=== PATIENT | female | born 1930 | race Caucasian/White ===

== ENCOUNTER 2016-09-05 19:06 | Inpatient (IN) | payer MEDICARE, MEDICAID ==
[2016-09-05] MEDS ORDERED: Loperamide HCl 2 MG CAP PO PRN (22:01)
[2016-09-05] MEDS ORDERED: Nystatin Powder 15 GM BOT TOP PRN (22:01)
[2016-09-06] MEDS: HYDROcodone/Acetaminophen 10/325 mg Tablet PO PRN ×2 (01:38→09:26)
[2016-09-06] MEDS: Aspirin 81 mg Enteric Coated Tablet PO SCH (08:49)
[2016-09-06] MEDS: Famotidine 20 MG TAB PO SCH ×2 (08:49→20:09)
[2016-09-06] MEDS: Carvedilol 12.5 MG TAB PO SCH ×2 (08:49→17:14)
[2016-09-06] MEDS: Furosemide 20 MG TAB PO SCH (08:50)
[2016-09-06] MEDS ORDERED: Pregabalin 25 MG CAP PO SCH (09:00)
[2016-09-06] MEDS: guaiFENesin ER 600 MG TAB PO SCH ×2 (11:52→20:09)
[2016-09-06] MEDS: Pregabalin 50 MG CAP PO SCH (20:09)
[2016-09-06] MEDS: Pregabalin 25 MG CAP PO SCH (20:10)
[2016-09-07] MEDS: HYDROcodone/Acetaminophen 10/325 mg Tablet PO PRN ×4 (01:01→20:20)
[2016-09-07] MEDS: Pregabalin 50 MG CAP PO SCH ×2 (08:46→20:14)
[2016-09-07] MEDS: Pregabalin 25 MG CAP PO SCH ×2 (08:47→20:11)
[2016-09-07] MEDS: guaiFENesin ER 600 MG TAB PO SCH ×2 (08:48→20:11)
[2016-09-07] MEDS: Furosemide 20 MG TAB PO SCH (08:49)
[2016-09-07] MEDS: Famotidine 20 MG TAB PO SCH ×2 (08:49→20:15)
[2016-09-07] MEDS: Aspirin 81 mg Enteric Coated Tablet PO SCH (08:49)
[2016-09-07] MEDS: Carvedilol 12.5 MG TAB PO SCH ×2 (08:50→17:17)
[2016-09-07] MEDS: Acetaminophen 325 MG TAB PO PRN (11:00)
[2016-09-08] MEDS: HYDROcodone/Acetaminophen 10/325 mg Tablet PO PRN ×3 (07:14→21:31)
[2016-09-08] MEDS: Pregabalin 50 MG CAP PO SCH ×4 (07:25→21:01)
[2016-09-08] MEDS: Furosemide 20 MG TAB PO SCH (08:08)
[2016-09-08] MEDS: Famotidine 20 MG TAB PO SCH ×2 (08:09→21:04)
[2016-09-08] MEDS: Aspirin 81 mg Enteric Coated Tablet PO SCH (08:09)
[2016-09-08] MEDS: Carvedilol 12.5 MG TAB PO SCH ×2 (08:09→17:51)
[2016-09-08] MEDS: guaiFENesin ER 600 MG TAB PO SCH ×2 (08:09→21:01)
[2016-09-08] MEDS: Pregabalin 25 MG CAP PO SCH ×2 (08:10→21:03)
[2016-09-09] MEDS: HYDROcodone/Acetaminophen 10/325 mg Tablet PO PRN ×3 (03:08→21:57)
[2016-09-09] MEDS: Furosemide 20 MG TAB PO SCH (09:35)
[2016-09-09] MEDS: Carvedilol 12.5 MG TAB PO SCH ×2 (09:35→17:32)
[2016-09-09] MEDS: Pregabalin 50 MG CAP PO SCH ×2 (09:35→20:16)
[2016-09-09] MEDS: guaiFENesin ER 600 MG TAB PO SCH ×2 (09:35→20:15)
[2016-09-09] MEDS: Pregabalin 25 MG CAP PO SCH ×2 (09:35→20:13)
[2016-09-09] MEDS: Famotidine 20 MG TAB PO SCH ×2 (09:35→20:12)
[2016-09-09] MEDS: Aspirin 81 mg Enteric Coated Tablet PO SCH (09:35)
--- NOTE | 2016-09-09 15:42 | HP ---
ATTENDING PHYSICIAN: Jesusita Akhtar M.D. PRIMARY CARE PHYSICIAN: Mikey Maravilla M.D. REASON FOR ADMISSION: Skilled rehabilitation for general weakness/ deconditioning. HISTORY OF PRESENT ILLNESS AND HOSPITAL COURSE: Ms. Estrada is an 85-year-old female with multiple chronic medical conditions. She was admitted initially to [facility] with worsening shortness of breath secondary to discontinuation of Lasix. The patient was found to be with volume overload , thus admitted in telemetry. She was started on IV Lasix for her acute exacerbation and decompensation. She also reports pain in her left hip for which an x-ray of the hip was done that was unremarkable. She had a CT scan of the abdomen and pelvis for vague abdominal pain that was unremarkable for any acute findings. She intermittently reports leg pains. Her lower extremity ultrasound did not show occlusive DVT. Per report, the patient improved markedly with IV Lasix and continuous oxygen supplementation. Prior to discharge, I was told that the patient's O2 sat was discontinued completely as her O2 sats remains greater than 92% at room air. During this hospitalization, her blood pressure medicines were adjusted as tolerated by her blood pressure. Overall, weight significantly reduced from 200 lbs to 199 pounds prior to discharge. She was transferred to [facility] for purposes of skilled rehab as she remains generally weak with an unstable gait. PAST MEDICAL HISTORY: 1. Chronic diastolic heart failure with an ejection fraction of 55% to 60% per an echocardiogram in 04/2016. 2. Chronic obstructive pulmonary disease. 3. Chronic respiratory failure on home O2. 4. Hypertension. 5. Gastroesophageal reflux disease. 6. Obesity. 7. History of atrial fibrillation, status post IVC filter, not on anticoagulation for risk of fall. 8. Anxiety and depression. 9. Neuropathic pain. 10. Chronic lower back pain/left hip pain. 11. History of lung nodule by CT scan followed by Pulmonology. 12. Hypertension. PAST SURGICAL HISTORY: 1. Right nephrectomy. 2. Hip replacement x2. 3. Cholecystectomy. 4. IVC filter placement. 5. Bilateral total hip replacement. 6. Dorsal column stimulator for on and off pain. ALLERGIES: MORPHINE and LASIX. PAST PSYCHIATRIC HISTORY: Significant for anxiety and depression. SOCIAL HISTORY: The patient has no history of any alcohol, drugs or smoking use. She lives by herself. Her daughter is her primary director of outside sales. FAMILY HISTORY: Noncontributory. TRANSFER MEDICATIONS: Aspirin 81 mg p.o. daily, Coreg 12.5 mg p.o. b.i.d., diltiazem 120 mg p.o. daily, famotidine 20 mg p.o. b.i.d., Lasix 20 mg p.o. daily, [place] as needed for pain, DuoNeb as needed for shortness of breath, Imodium as needed for diarrhea, nystatin powder 1 gram topical b.i.d., pregabalin 75 mg p.o. b.i.d., Phenergan as needed for nausea and vomiting and Zoloft 25 mg p.o. daily. SIGNIFICANT LAB RESULTS: On discharge, WBC is 9.9, hemoglobin 13.3, hematocrit 41.8 and platelets 213. Sodium 137, potassium 4, BUN 29 and creatinine 1. Her LFTs were within normal limits. Troponins are negative. Lipase was negative. UA was unremarkable. REVIEW OF SYSTEMS: GENERAL: Denies fever or chills. No loss of appetite. Reports fatigue and general weakness. . HEENT: No acute visual changes or hearing changes. RESPIRATORY: No active shortness of breath, pain with breathing, sputum production or bloody sputum. CARDIAC: No active chest pain or paroxysmal nocturnal dyspnea. Reports intermittent leg edema and dyspnea on exertion. GASTROINTESTINAL: No nausea, vomiting, abdominal pain, diarrhea or rectal bleeding. GENITOURINARY: No dysuria, hematuria, frequency or incontinence. MUSCULOSKELETAL: Reports chronic intermittent joint pains and muscle aches. SKIN: No rashes, no lesions. NEUROLOGIC: No new motor or sensory losses. PSYCHIATRIC: Reports chronic depression, anxiety. Sleeps fine. PHYSICAL EXAMINATION: VITAL SIGNS: Temperature 96.8, pulse 80, respirations 16, O2 sats 98% at 2 liters of oxygen. Weight 198 pounds and 2 ounces. GENERAL: The patient is awake, alert and oriented x3, not in distress. HEENT: Normocephalic and atraumatic. PERRL, intact EOM. Nonicteric sclerae. Oral mucosa is moist. Tongue in the midline. No tremors. NECK: Supple. No LAD, CHEST: Normal excursion, clear to auscultation bilaterally. HEART: Regular rate. Normal S1 and S2. ABDOMEN: Obese, soft, normoactive bowel sounds, nondistended and nontender. No rebound, no guarding. Negative CVA tenderness bilaterally. EXTREMITIES: Trace nonpitting edema bilaterally up to anterior tibia. NEUROLOGIC: Nonfocal unsteady gait. PSYCHIATRIC: Calm, appropriate and cooperative with appropriate demeanor and affect. ASSESSMENT: 1. Deconditioning/general weakness. 2. Acute on chronic diastolic heart failure exacerbation. 3. Acute on chronic respiratory failure secondary to #1 resolved. 4. Atrial fibrillation with rapid ventricular response, currently rate controlled. The patient is not a candidate for anticoagulation, status post IVC filter. 5. Hypertension, stable. 6. Chronic kidney disease stage 3, stable. 7. Chronic obstructive pulmonary disease, requiring home O2 intermittently. 8. Depression/anxiety. 9. Gastroesophageal reflux disease. 10. Obesity. 11. Neuropathic pain. 12. Chronic lower back pain/left hip pain. 13. History of lung nodule by CT scan followed by Pulmonology. PLAN: The patient is admitted to [facility] for skilled rehabilitation. PT to consult to gain modified independence with mobility and household ambulating with a rolling walker at least, weightbearing as tolerated. OT to consult to gain modified independence with self-care ADL skills prior to going back to home environment. Continue all current medications as per list. The patient's pain will be managed with p.r.n. narcotics as well as constipation management. I will monitor the patient for any medical comorbidities that may interfere with rehab progress. ESTIMATED LENGTH OF STAY: 1-2 weeks. DISPOSITION: Home. CODE STATUS: The patient reports do not resuscitate, which is consistent with the patient's records hospital records. STIVEN
[2016-09-09] MEDS ORDERED: Mag-Al Plus 1200 MG/1200 MG/120 MG/30 ML UDCUP PO PRN (18:44)
[2016-09-10] MEDS ORDERED: HYDROcodone/Acetaminophen 10/325 mg Tablet ONE ×2 (04:58→05:02)
[2016-09-10] MEDS: Furosemide 20 MG TAB PO SCH (08:37)
[2016-09-10] MEDS: Carvedilol 12.5 MG TAB PO SCH ×2 (08:37→16:13)
[2016-09-10] MEDS: Aspirin 81 mg Enteric Coated Tablet PO SCH (08:37)
[2016-09-10] MEDS: Famotidine 20 MG TAB PO SCH ×2 (08:38→20:51)
[2016-09-10] MEDS: guaiFENesin ER 600 MG TAB PO SCH ×2 (08:39→20:51)
[2016-09-10] MEDS: Pregabalin 25 MG CAP PO SCH ×2 (08:41→20:53)
[2016-09-10] MEDS: Pregabalin 50 MG CAP PO SCH ×2 (08:41→20:51)
[2016-09-10] MEDS: HYDROcodone/Acetaminophen 10/325 mg Tablet PO PRN ×2 (10:30→20:57)
[2016-09-10] MEDS: Docusate 100 MG CAP PO SCH (20:51)
[2016-09-11] MEDS: Carvedilol 12.5 MG TAB PO SCH ×2 (07:35→17:08)
[2016-09-11] MEDS: HYDROcodone/Acetaminophen 10/325 mg Tablet PO PRN ×3 (07:37→20:08)
[2016-09-11] MEDS: Pregabalin 25 MG CAP PO SCH ×2 (09:04→20:05)
[2016-09-11] MEDS: Aspirin 81 mg Enteric Coated Tablet PO SCH (09:05)
[2016-09-11] MEDS: Docusate 100 MG CAP PO SCH ×2 (09:05→20:07)
[2016-09-11] MEDS: Pregabalin 50 MG CAP PO SCH ×2 (09:05→20:09)
[2016-09-11] MEDS: Furosemide 20 MG TAB PO SCH (09:06)
[2016-09-11] MEDS: Famotidine 20 MG TAB PO SCH ×2 (09:06→20:07)
[2016-09-11] MEDS: guaiFENesin ER 600 MG TAB PO SCH (09:06)
[2016-09-11] MEDS ORDERED: Cyclobenzaprine 10 MG TAB PO PRN (16:36)
[2016-09-12] MEDS: HYDROcodone/Acetaminophen 10/325 mg Tablet PO PRN ×3 (05:37→19:27)
[2016-09-12] MEDS: Pregabalin 25 MG CAP PO SCH ×2 (09:13→20:14)
[2016-09-12] MEDS: Pregabalin 50 MG CAP PO SCH ×2 (09:14→20:15)
[2016-09-12] MEDS: Docusate 100 MG CAP PO SCH ×2 (09:15→20:16)
[2016-09-12] MEDS: Carvedilol 12.5 MG TAB PO SCH ×2 (09:15→17:29)
[2016-09-12] MEDS: Aspirin 81 mg Enteric Coated Tablet PO SCH (09:15)
[2016-09-12] MEDS: Famotidine 20 MG TAB PO SCH ×2 (09:16→20:16)
[2016-09-12] MEDS: Furosemide 20 MG TAB PO SCH (09:16)
[2016-09-13] MEDS: HYDROcodone/Acetaminophen 10/325 mg Tablet PO PRN ×2 (04:29→10:44)
[2016-09-13] MEDS: Acetaminophen 325 MG TAB PO PRN (08:28)
[2016-09-13] MEDS: Pregabalin 25 MG CAP PO SCH ×2 (08:28→20:38)
[2016-09-13] MEDS: Famotidine 20 MG TAB PO SCH ×2 (08:28→20:39)
[2016-09-13] MEDS: Pregabalin 50 MG CAP PO SCH ×2 (08:29→20:39)
[2016-09-13] MEDS: Furosemide 20 MG TAB PO SCH (08:30)
[2016-09-13] MEDS: Aspirin 81 mg Enteric Coated Tablet PO SCH (08:30)
[2016-09-13] MEDS: Docusate 100 MG CAP PO SCH ×2 (08:30→20:39)
[2016-09-13] MEDS: Carvedilol 12.5 MG TAB PO SCH ×2 (08:30→17:23)
[2016-09-13] MEDS ORDERED: HYDROcodone/Acetaminophen 5/325 mg Tablet PO PRN (11:38)
[2016-09-13] MEDS: HYDROcodone/Acetaminophen 5/325 mg Tablet PO PRN ×2 (15:55→23:54)
[2016-09-14 05:31] VITALS: BMI 34.5
[2016-09-14] MEDS: HYDROcodone/Acetaminophen 5/325 mg Tablet PO PRN ×2 (08:05→11:45)
[2016-09-14] MEDS: Pregabalin 25 MG CAP PO SCH (08:06)
[2016-09-14] MEDS: Pregabalin 50 MG CAP PO SCH (08:07)
[2016-09-14] MEDS: Docusate 100 MG CAP PO SCH (08:08)
[2016-09-14] MEDS: Famotidine 20 MG TAB PO SCH (08:08)
[2016-09-14] MEDS: Carvedilol 12.5 MG TAB PO SCH (08:09)
[2016-09-14] MEDS: Aspirin 81 mg Enteric Coated Tablet PO SCH (08:09)
[2016-09-14] MEDS: Furosemide 20 MG TAB PO SCH (08:09)
[2016-09-14 08:32] VITALS: BP 142/77; TEMP 97
--- NOTE | 2016-09-14 21:41 | DIS ---
DATE OF ADMISSION: 09/05/2016 DATE OF DISCHARGE: 09/14/2016 ATTENDING DOCTOR: Jesusita Akhtar MD PRIMARY CARE PHYSICIAN: Mikey Maravilla MD REASON FOR ADMISSION: General weakness,after hospitalization. ASSESSMENT: 1. Deconditioning/general weakness. 2. Vdypy-mg-dosxyup diastolic heart failure exacerbation, improved. 3. Aufvs-iu-cwoaixz respiratory failure secondary to #1, resolved. 4. Atrial fibrillation with rapid ventricular response. Currently, rate controlled. The patient is not a good candidate for anticoagulation secondary to history of fall. Status post IVC filter. 5. Hypertension, stable. 6. Neuropathic pain. 7. Chronic kidney disease stage 3, stable. 8. Chronic obstructive pulmonary disease requiring intermittent O2 use at home. 9. Depression, anxiety, stable. 10. Gastroesophageal reflux. 11. Chronic low back pain/left hip pain, requiring intermittent use of narcotic for pain management. 12. History of lung nodule by CT scan, followed by round boner. 13. Unsteady gait. CONDITION ON DISCHARGE: Stable. DISPOSITION: Home with daughter. HOME MEDICATIONS: 1. Aspirin 81 mg p.o. daily. 2. Coreg 12.5 mg p.o. b.i.d. 3. Diltiazem 120 mg p.o. daily. 4. Famotidine 20 mg p.o. b.i.d. 5. Lasix 20 mg p.o. daily. 6. [place] 10/325 mg every 8 hours p.r.n. 7. DuoNeb every 4 hours p.r.n. 8. Imodium as needed. 9. Nystatin powder topical b.i.d. on affected areas. 10. Pregabalin 75 mg p.o. b.i.d. 11. Zoloft 25 mg p.o. daily. DIET: Low salt, low fat. ACTIVITIES: Ad esdras. Fall precautions. Home O2 p.r.n. to keep O2 saturations 92% and above. FOLLOWUP: Follow up with PCP/Dr. Maravilla on 09/23/2016, as previously scheduled. ER warnings. HISTORY OF PRESENT ILLNESS AND HOSPITAL COURSE: Ms. Estrada is a very pleasant 85-year-old female with multiple chronic medical conditions. She was recently admitted to [facility] for acute exacerbation of CHF, acute renal injury, zcogh-fs-vqavgfz respiratory failure with tachycardia. Patient was treated appropriately in the hospital. Her medications including diuretics and antihypertensives were adjusted appropriately and was well tolerated by her blood pressures. Her oxygen saturation remains in the 92% and above at room air, thus her 02 supplement was discontinued from the hospital. She was generally weak at that time and deemed to benefit from skilled rehabilitation prior to discharging home, thus she was transferred to [facility] on 09/05/2016. Barriers to patient's therapy include low back pain, left hip pain and leg pain, which appears to be chronic. Of note, there were multiple imaging studies obtained from [facility] including venogram, which were all unremarkable ,no acute changes reported. Patient reports that she had a history of chronic low back pain/hip pain from previous injury with previous history of surgeries. She reports history of chronic intermittent pain and is well maintained with p.r.n. narcotics use. Patient did not make marked improvement with her ambulation during he skilled rehab course. During her rehab stay,she has been euvolemic, chest pain-free, no reported dyspnea, no pain with breathing. On 09/13/2016, patient's daughter came to the hospital and requested for discharge. At this time, family is comfortable to take care of the patient at home as they stated that she is at her baseline. The patient was agreeable on this and was discharged 09/14/2016 with plans to continue therapy with home health. Patient has used her 02 intermittently during her rehab. Patient' s O2 sats prior to discharge was 96 at room air. She states that she has home O2 at home and she can use as needed. Vital signs prior to discharge, blood pressure 142/77, temperature 97, pulse 78 , respirations 18, O2 sats 96% at room air. Weight 195 pounds, height 5 feet 3 inches. Time spent on this discharge in assessing patient and coordinating of care 35 minutes. STIVEN
== END 2016-09-14 11:56 | disposition home health service (06) | DRG 947 ==
LOC: MADMS 21:42
PROVIDERS: ADMIT Family Medicine; ATTEND Family Medicine
DX: R53.1 Weakness (principal); I50.33 Acute on chronic diastolic (congestive) heart failure; J96.20 Acute and chronic respiratory failure, unspecified whether with hypoxia or hypercapnia; N18.3 Chronic kidney disease, stage 3 (moderate); J44.9 Chronic obstructive pulmonary disease, unspecified; I48.91 Unspecified atrial fibrillation; Z99.81 Dependence on supplemental oxygen; G62.9 Polyneuropathy, unspecified; F32.9 Major depressive disorder, single episode, unspecified; I13.0 Hypertensive heart and chronic kidney disease with heart failure and stage 1 through stage 4 chronic kidney disease, or unspecified chronic kidney disease; K21.9 Gastro-esophageal reflux disease without esophagitis; Z66 Do not resuscitate; E66.9 Obesity, unspecified; Z88.6 Allergy status to analgesic agent; Z79.82 Long term (current) use of aspirin; F41.9 Anxiety disorder, unspecified; Z68.35 Body mass index [BMI] 35.0-35.9, adult; M54.5 Low back pain; M25.552 Pain in left hip; R26.81 Unsteadiness on feet; Z96.643 Presence of artificial hip joint, bilateral
CPT/HCPCS: J7620

== ENCOUNTER 2016-09-22 11:50 | Emergency (ER) | payer MEDICARE, MEDICAID ==
[2016-09-22] MEDS ORDERED: Ondansetron HCl/PF 4 MG/2 ML Vial ONE (12:27)
[2016-09-22] MEDS ORDERED: Diazepam 5 MG TAB ONE (12:27)
[2016-09-22] MEDS ORDERED: Ketorolac Tromethamine 30 MG/ML VIAL ONE (12:27)
[2016-09-22 12:45] LABS: #Basophils 0.1 thou/uL (0.0-0.2); #Lymphocytes 2.5 thou/uL (1.20-3.40); #Monocytes 0.9 thou/uL (0.11-0.59); #Neutrophils 7.1 thou/uL (1.40-6.50); %Basophils 0.8 % (0.0-1.0); %Eosinophils 0.2 % (0.0-10.0); %Lymphocytes 23.4 % (21.0-51.0); %Monocytes 8.3 % (0.0-10.0); %Neutrophils 67.3 % (42.0-75.0); Hemoglobin 13.4 g/dL (12.0-16.0); Mean Corpuscular HGB CONC 31.5 g/dL (32.0-36.0); Mean Corpuscular Volume 85.7 fl (81.0-99.0); Mean Platelet Volume 8.8 fL (7.4-10.4); Platelet Count 217 thou/uL (130-400); Red Blood Cell (RBC) Count 4.98 mill/uL (4.20-5.40); White Blood Cell (WBC) Count 10.5 thou/uL (4.8-10.8)
[2016-09-22 13:00] LABS: ALT (SGPT) 21 U/L (0-55); AST (SGOT) 30 U/L (5-34); Albumin 3.3 g/dL (3.4-4.8); Alkaline Phosphatase 102 U/L (40-150); Anion Gap 17 mmol/L (10-20); BUN (Urea Nitrogen) 27 mg/dL (9.8-20.1); Bilirubin, Total 0.4 mg/dL (0.2-1.2); Calc. Creatinine Clearance 0 mL/min (70-130); Calcium 9.3 mg/dL (7.8-10.44); Carbon Dioxide 32 mmol/L (23-31); Chloride 96 mmol/L (98-107); Estimated GFR-MDRD 51; Globulin 4.6 g/dL (2.4-3.5); Glucose 79 mg/dL (83-110); Potassium 4.3 mmol/L (3.5-5.1); Protein, Total 7.9 g/dL (5.8-8.1); Sodium 141 mmol/L (136-145)
[2016-09-22 13:01] LABS: Bilirubin Negative (Negative); Blood, Urine Negative (Negative); Clarity Slightly Cloudy (Clear); Glucose, Urine (Dipstick) Negative (Negative); Leukocyte Moderate (Negative); Nitrite Positive (Negative); Protein, Urine (Dipstick) Negative (Neg-Trace); Specific Gravity, Urine 1.015 (1.005-1.030); Urobilinogen 0.2 mg/dL (0.2-1.0); pH, Urine 6.5 (5.0-9.0)
[2016-09-22 13:03] LABS: RBC/HPF None Seen HPF (0-3); Squamous Epithelial 0-3 HPF (0-3); WBC/HPF 21-50 HPF (0-3)
[2016-09-22 13:04] LABS: Bacteria/HPF 3+ HPF (None Seen)
--- NOTE | 2016-09-22 13:17 | CT ---
NONCONTRAST CT OF THE BRAIN: INDICATION: Headache with vision changes. COMPARISON: Prior CT dated 12/12/14. FINDINGS: No acute infarct, hemorrhage, or hydrocephalus is present. There is mild chronic small-vessel white matter ischemic change. There is calcified extraaxial mass overlying the right frontal lobe likely related to a meningioma. This appears stable to the prior exam. There is complete opacification o f the right mastoid air cell with thickening of the wilkins of the right mastoid air cell suspicious f or chronic sinusitis. A similar appearance is seen involving the left sphenoid sinus. IMPRESSION: 1. No acute intracranial abnormality. 2. Stable calcified mass overlying the right frontal lobe likely reflecting a meningioma. 3. Stable mild chronic small-vessel white matter ischemic change. 4. Paranasal sinus disease as above. POS: [facility]
[2016-09-22] MEDS ORDERED: Sulfameth/Trimethoprim DS 800-160mg TAB ONE (13:39)
--- NOTE | 2016-09-22 13:41 | ERRECORD ---
[facility] EMERGENCY RECORD HPI GENERAL (12:28 LLDO) CHIEF COMPLAINT: Patient presents for evaluation of when pt moved from dark house into bright sunlight this morning en route to physician appt she experienced sudden onset, for about 30 min, of wildly flashing lights, blindingly bright. also had hard shaking for about the same period. marked anxiety. had severe headache yestrday but not now. no recent trauma or fever or any s-sx of illness. had very similar episode once before when her bluetooth malfunctioned. HISTORIAN: History provided by patient, History provided by patient's family, DAUGHTER. MECHANISM OF INJURY: Unknown mechanism, Mechanism of injury is unknown, No alcohol use associated with this incident, No drug use associated with this incident, No domestic violence associated with this incident. LOCATION: Symptoms are generalized. QUALITY: Pain is dull in nature. SEVERITY: Maximum severity of symptoms mild, Currently symptoms are mild. TIME COURSE: Sudden onset of symptoms, Symptoms are improving, worst of sx resolving now, are constant. ASSOCIATED WITH: No associated symptoms. EXACERBATED BY: Patient's condition exacerbated by nothing, Patient's condition exacerbated by bright lights???. RELIEVED BY: Patient's condition relieved by nothing. ROS CONSTITUTIONAL: Negative constitutional review of systems. (12:35 LLDO) EYES: Historian reports vision changes, ONLY IN HPI. (12:35 LLDO) ENT: Negative ears, nose, throat review of systems, Historian denies epistaxis, denies rhinorrhea, denies sinus pain, denies sore throat. (12:38 LLDO) MUSCULOSKELETAL: Negative musculoskeletal review of systems, Historian denies arthralgias, denies back pain, denies injury, denies myalgias, denies neck pain. (12:38 LLDO) SKIN: Negative skin review of systems, Historian denies cellulitis, denies rash, denies skin changes, denies skin lesions. (12:38 LLDO) NEUROLOGIC: Historian denies confusion, denies dizziness, denies dysphasia, denies focal weakness, reports headache, denies irritability, denies lethargy, denies mental status changes. pt is non-mobild d.t. previous surgeries. (12:35 LLDO) HEMO/LYMPHATIC: Normal hematologic/lymphatic system review, Historian denies abnormal blood clotting, denies gum bleeding, denies petechiae. (12:38 LLDO) ALLERGIC/IMMUNOLOGIC: Normal allergy/immunologic system review, Historian denies eczema, denies environmental allergies, denies food &a-1R&a+25V*p+0X*[id number]*c202B*c15G*c2P*p-0X&a-25V&a+1R Name: Chrissy Estrada : 1930 F85 MedRec: [id number] AcctNum: [id number] Prepared: Angela Sep 22, 2016 14:02 by Interface Page 1 of 5 pMD [facility] EMERGENCY RECORD allergies. (12:38 LLDO) PSYCHIATRIC: Negative psychiatric review of systems, Historian denies alcohol abuse, denies anxiety, denies depression, denies drug abuse, denies hallucinations. (12:38 LLDO) NOTES: All systems reviewed, negative except as described above. (12:35 LLDO) PAST MEDICAL HISTORY MEDICAL HISTORY: Flu vaccine up to date, Tetanus not up to date, Pneumococcal vaccine up to date, Past medical history includes cardiac history, Past medical history includes gastrointestinal disease, gastroesophageal reflux disease, Past medical history includes history of hypertension, Family does not want her to take meds, Past medical history includes musculoskeletal disorder, arthritis, Past medical history includes cardiac history, arrhythmia, atrial fibrillation, Past medical history includes cardiac history, congestive heart failure. Notes: chronic back pain. sciatica, COPD. (12:03 CJEF) FEMALE SURGICAL HISTORY: NERVE STIMULATOR PLACED IN BACK ON 09-15-[address] VACA, Surgical history of nephrectomy, on the right, gall bladder removal, bilateral hip replacement, , cataract surgery. (12:03 CJEF) PSYCHIATRIC HISTORY: Psychiatric history includes, depression. (12:03 CJEF) SOCIAL HISTORY: Patient denies alcohol use, Patient denies drug use, Patient has no smoking history. (12:03 CJEF) NOTES: Nursing records reviewed, Agree with nursing records, Medication list reviewed. (12:37 LLDO) KNOWN ALLERGIES ceftriaxone sodium (Unconfirmed) Cipro tablet ciprofloxacin (Unconfirmed) ciprofloxacin HCl (Unconfirmed) codeine (Unconfirmed) codeine sulfate latex (Unconfirmed) Latex, Natural Rubber morphine (Unconfirmed) morphine (bulk) CURRENT MEDICATIONS (11:57 CJEF) Anti-Diarrheal (loperamide): TABLET : Strength - 2 mg : ORAL Patient Dose: 2 mg Oral As Needed. Lyrica: CAPSULE : Strength - 150 mg : ORAL Patient Dose: 75 mg Oral 2 times a day. Lasix: TABLET : Strength - 20 mg : ORAL &a-1R&a+25V*p+0X*[id number]*c202B*c15G*c2P*p-0X&a-25V&a+1R Name: Chrissy Estrada : 1930 F85 MedRec: [id number] AcctNum: [id number] Prepared: [facility] Sep 22, 2016 14:02 by Interface Page 2 of 5 pMD [facility] EMERGENCY RECORD Patient Dose: 1 tab(s) Oral 2 times a day. Cartia XT: CAPSULE, EXT RELEASE 24 HR : Strength - 120 mg : ORAL Patient Dose: once a day. Phenergan: TABLET : Strength - 25 mg : ORAL Patient Dose: As Needed. [place]: TABLET : Strength - 10 mg-325 mg : ORAL Patient Dose: every 8 hours PRN. carvedilol: TABLET : Strength - 25 mg : ORAL Patient Dose: Unknown. sertraline: TABLET : Strength - 25 mg : ORAL Patient Dose: once a day. ProAir HFA: HFA AEROSOL WITH ADAPTER (GRAM) : Strength - 90 mcg : INHALATION Patient Dose: Unknown. VITAL SIGNS VITAL SIGNS: BP: 156/74, Pulse: 109, Resp: 20, O2 sat: 95 on Room Air, Time: 09/22/2016 11:54. (11:[address] [facility]) Pain: 0, Time: 09/22/2016 12:03. (12:[address] [facility]) Pulse: 85, Resp: 18, Temp: 97.5 (Tympanic), Pain: 0, O2 sat: 95 on Room Air, Time: 09/22/2016 12:34. (12:[address] [facility]) BP: 145/76, Pulse: 91, Resp: 18, Pain: 0, O2 sat: 95 on Room Air, Time: 09/22/2016 12:48. (12:[address] [facility]) BP: 126/68, Pulse: 103, Resp: 18, Temp: 97.6 (Tympanic), Pain: 0, O2 sat: 95 on Room Air, Time: 09/22/2016 13:37. (13:[address] [facility]) PHYSICAL EXAM CONSTITUTIONAL: Vital signs reviewed, Patient afebrile, Pulse normal, Blood pressure, BP ELEVATED SLIGHTLY, Respiratory rate normal, Patient appears non toxic, Patient appears pain free, Patient alert and oriented to person, place and time. (12:36 LLDO) HEAD: Head exam normal, Head exam included findings of head atraumatic, normocephalic. (12:38 LLDO) EYES: Eye exam normal, Eye exam included findings of eyelids normal to inspection, Pupils equally round and reactive to light, Extraocular muscles intact. (12:38 LLDO) ENT: ENT exam normal, Ear exam normal, Nose exam normal. (12:38 LLDO) NECK: has fine left carotid bruit. (12:36 LLDO) RESPIRATORY CHEST: Respiratory and chest exam normal, Respiratory exam included findings of, Chest exam included findings of chest movement symmetrical, Chest expansion equal. (12:38 LLDO) CARDIOVASCULAR: Cardiovascular exam included findings of heart &a-1R&a+25V*p+0X*[id number]*c202B*c15G*c2P*p-0X&a-25V&a+1R Name: Chrissy Estrada : 1930 F85 MedRec: [id number] AcctNum: [id number] Prepared: Angela Sep 22, 2016 14:02 by Interface Page 3 of 5 pMD [facility] EMERGENCY RECORD rate regular rate and rhythm, Heart sounds with, systolic murmur present, grade 3/6. (12:36 LLDO) ABDOMEN FEMALE: Abdominal exam normal, Abdominal exam included findings of abdomen nontender, Bowel sounds normal, no peritoneal signs. (12:38 LLDO) BACK: Back exam normal, Back exam included findings of normal inspection, range of motion normal. (12:38 LLDO) UPPER EXTREMITY: Upper extremity exam normal, Upper extremity exam included findings of inspection normal, Range of motion normal. (12:38 LLDO) LOWER EXTREMITY: Lower extremity exam normal, Lower extremity exam included findings of inspection normal, Range of motion normal. (12:38 LLDO) NEURO: Neuro exam normal, Neuro exam findings include patient oriented to person, place and time, Speech normal, Matilde coma scale 15. (12:38 LLDO) SKIN: Skin exam normal, Skin exam included findings of skin warm, dry, and normal in color, no rash. (12:38 LLDO) PSYCHIATRIC: Psychiatric exam normal, Psychiatric exam included findings of patient oriented to person place and time, Normal affect. (12:38 LLDO) MEDICATION ADMINISTRATION SUMMARY Drug Name: Septra DS, Dose Ordered: 1 tab(s), Route: Oral, Status: Given, Time: 13:43 09/22/2016, Drug Name: Valium oral, Dose Ordered: 5 mg, Route: Oral, Status: Given, Time: 12:33 09/22/2016, Drug Name: Toradol intravenous, Dose Ordered: 15 mg, Route: IV Push, Status: Given, Time: 12:32 09/22/2016, Drug Name: Zofran intravenous, Dose Ordered: 8 mg, Route: IV Push, Status: Given, Time: 12:32 09/22/2016, Detailed record available in Medication Service section. PROBLEM LIST No recorded problems DIAGNOSIS (13:34 LLDO) FINAL: PRIMARY: UTI SITE NOT SPECIFIED. PRESCRIPTION (13:34 LLDO) Septra DS: TABLET : 800 mg-160 mg : ORAL : Quantity: 1 Unit: tab(s) Route: ORAL Schedule: 2 times a day (before meals) Dispense: 20 May substitute. Refills: No Refills . NOTES: No Refills. DISPOSITION PATIENT: Disposition Type: Discharge, Disposition: *Discharge Home. (13:34 LLDO) &a-1R&a+25V*p+0X*[id number]*c202B*c15G*c2P*p-0X&a-25V&a+1R Name: Chrissy Estrada : 1930 F85 MedRec: [id number] AcctNum: [id number] Prepared: [facility] Sep 22, 2016 14:02 by Interface Page 4 of 5 pMD [facility] EMERGENCY RECORD Patient left the department. (13:54 CJ) Carr: CJEF=RYDER Baumann, Francoise LLDO=MD Joel, Max &a-1R&a+25V*p+0X*[id number]*c202B*c15G*c2P*p-0X&a-25V&a+1R Name: Chrissy Estrada : 1930 F85 MedRec: [id number] AcctNum: [id number] Prepared: Angela Sep 22, 2016 14:02 by Interface Page 5 of 5 pMD MTDD
--- NOTE | 2016-09-22 13:44 | PICIS ---
[facility] EMERGENCY RECORD TRIAGE (MonSep 22, 2016 11:57 CJ) PATIENT: NAME: Chrissy Estrada, AGE: 85, GENDER: female, : Mon1930, TIME OF GREET: MonSep 22, 2016 11:51, PREFERRED LANGUAGE: Occitan, ETHNICITY: Not or , FALL RISK: YES, ECODE BILLING MAP: [facility] [address], SSN: [id number], Zip Code: [address], KG WEIGHT: 88.45, PHONE: , , , PERSON ID: [id number], PCP: MD Maravilla Jacques. (MonSep 22, 2016 11:57 CJEF) TRIAGE NOTES: PT REPORTS THAT SHE HAD A SEVERE HEADACHE LAST NIGHT, THOUGH IT HAS DISSIPATED NOW. PT REPORTS THAT SHE WAS ONT HE WAY TO SEE HER PCP IN [place], COMING OUT OF HER HOUSE, WHEN SHE STARTED SEEING COLORS. PT RECEIVED STEROID SHOTS YESTERDAY TO THE LOWER BACK. PT REPORTS SHE HAS HAD AN EPISODE OF THIS SAME THING HAPPENING A COUPLE MONTHS AGO WHEN SHE WAS MESSING WITH HER HEARING AID. PT APPEARS ANXIOUS AND ASKE "WHAT HAPPENS WHEN SOMEONE DEVELOPS CANCER IN THE EAR BECAUSE SOMNEONE SAID I COULD HAVE IT SINCE I TAKE LASIX". "I JUST WANT SOMEONE TO LOOK IN MY EAR, DEEP DOWN, AND SEE IF I COULD HAVE CANCER IN MY EAR". DAUGHTER ARRIVES AT BEDSIDE AND STATES THAT PT WENT FROM DARK TO THE SUNLIGHT THIS MORNING WHEN SHE IMMEDIATELY STARTED HAVING FLASHES OF LIGHTS CAUSING THE PT TO START SHAKING AND HOLLERING. (MonSep 22, 2016 11:57 CJEF) COMPLAINT: SHAKING. (MonSep 22, 2016 11:57 CJEF) ADMISSION: URGENCY: 3 Urgent, ADMISSION SOURCE: Home, TRANSPORT: Walk-in, BED: ED -02. (MonSep 22, 2016 11:57 CJEF) ASSESSMENT: Assessment: "SEEING COLORS". (12:03 CJEF) PAIN: No complaint of pain. (12:03 CJEF) IMMUNIZATIONS: Flu vaccine up to date, Tetanus not up to date, Pneumococcal vaccine up to date. (12:03 CJEF) SIRS SCORING: Heart Rate 55-109 (0), Temp range 96.8-101.1 (0), respiratory rate 12-24 (0), Mental Status altered: no (0), Infection or Suspected Infection: No. (12:03 CJ) TRIAGE SCREENING: Patient denies suicidal ideation, Patient denies presence of domestic violence. (12:03 CJEF) PROVIDERS: TRIAGE NURSE: Francoise Baumann RN. (MonSep 22, 2016 11:57 CJEF) VITAL SIGNS: BP 156/74, Pulse 109, Resp 20, O2 Sat 95, on Room Air, Time 09/22/2016 11:54. (11:54 CJEF) PREVIOUS VISIT ALLERGIES: Cipro tablet, codeine sulfate, Latex, Natural Rubber, morphine (bulk). (MonSep 22, 2016 11:57 CJEF) Cipro tablet, codeine sulfate, Latex, Natural Rubber, morphine (bulk). (12:03 EF) KNOWN ALLERGIES ceftriaxone sodium (Unconfirmed) Cipro tablet ciprofloxacin (Unconfirmed) ciprofloxacin HCl (Unconfirmed) codeine (Unconfirmed) codeine sulfate latex (Unconfirmed) &a-1R&a+25V*p+0X*b6239A*c202B*c15G*c2P*p-0X&a-25V&a+1R Name: Chrissy Estrada : 1930 F85 MedRec: [id number] AcctNum: [id number] Prepared: MonSep 22, 2016 14:08 by Interface Page 1 of 13 pMD [facility] EMERGENCY RECORD Latex, Natural Rubber morphine (Unconfirmed) morphine (bulk) CURRENT MEDICATIONS (11:57 CJEF) Anti-Diarrheal (loperamide): TABLET : Strength - 2 mg : ORAL Patient Dose: 2 mg Oral As Needed. Lyrica: CAPSULE : Strength - 150 mg : ORAL Patient Dose: 75 mg Oral 2 times a day. Lasix: TABLET : Strength - 20 mg : ORAL Patient Dose: 1 tab(s) Oral 2 times a day. Cartia XT: CAPSULE, EXT RELEASE 24 HR : Strength - 120 mg : ORAL Patient Dose: once a day. Phenergan: TABLET : Strength - 25 mg : ORAL Patient Dose: As Needed. [place]: TABLET : Strength - 10 mg-325 mg : ORAL Patient Dose: every 8 hours PRN. carvedilol: TABLET : Strength - 25 mg : ORAL Patient Dose: Unknown. sertraline: TABLET : Strength - 25 mg : ORAL Patient Dose: once a day. ProAir HFA: HFA AEROSOL WITH ADAPTER (GRAM) : Strength - 90 mcg : INHALATION Patient Dose: Unknown. VITAL SIGNS VITAL SIGNS: BP: 156/74, Pulse: 109, Resp: 20, O2 sat: 95 on Room Air, Time: 09/22/2016 11:54. (11:54 CJEF) Pain: 0, Time: 09/22/2016 12:03. (12:03 CJEF) Pulse: 85, Resp: 18, Temp: 97.5 (Tympanic), Pain: 0, O2 sat: 95 on Room Air, Time: 09/22/2016 12:34. (12:34 CJEF) BP: 145/76, Pulse: 91, Resp: 18, Pain: 0, O2 sat: 95 on Room Air, Time: 09/22/2016 12:48. (12:48 CJEF) BP: 126/68, Pulse: 103, Resp: 18, Temp: 97.6 (Tympanic), Pain: 0, O2 sat: 95 on Room Air, Time: 09/22/2016 13:37. (13:37 CJEF) NURSING ASSESSMENT: FALL RISK (12:05 CJ) FALL RISK: Fall risk assessment findings include: no history of falls (0), No bed rest greater than 2 days (0), No use of level of consciousness altering agents with mentation or cognitive changes (0), No change in blood pressure (0), Sensory deficits (1), Impaired mobility (3), Neurologic diagnosis (3), &a-1R&a+25V*p+0X*k8376F*c202B*c15G*c2P*p-0X&a-25V&a+1R Name: Chrissy Estrada : 1930 F85 MedRec: [id number] AcctNum: [id number] Prepared: [facility] Sep 22, 2016 14:08 by Interface Page 2 of 13 pMD [facility] EMERGENCY RECORD Elimination problems (3), Confusion (3), Total score 13, Fall risk. HENDRICH II FALL RISK: Hendrich II Fall Risk assessment findings include patient confused, disoriented or impulsive(4), not symptomatic or depressed, altered elimination(1), no dizziness or vertigo, female, no antiepileptics (anticonvulsants) administered, no Benzodiazepines administered, Unable to rise without assistance during test(4), Total score 9, Score greater than 5. Patient is at high risk for fall. Fall risk precautions initiated. NURSING ASSESSMENT: NEURO (12:06 [facility]) GCS: (6) Obeying command:, (4) Confused conversation:, (4) Spontaneous eye opening., Result: 14. CONSTITUTIONAL: Complex assessment performed, Patient arrives, via hospital wheelchair, Unsteady gait, Assistance to cart, History obtained from patient, Patient appears, anxious, confused, Patient cooperative, Patient alert, Patient is, oriented to person, oriented to place, oriented to time, confused, Skin warm, Skin dry, Skin normal in color, Mucous membranes pink, Mucous membranes moist, Patient is well-groomed, PT REPORTS THAT SHE HAD A SEVERE HEADACHE LAST NIGHT, THOUGH IT HAS DISSIPATED NOW. PT REPORTS THAT SHE WAS ONT HE WAY TO SEE HER PCP IN [place], COMING OUT OF HER HOUSE, WHEN SHE STARTED SEEING COLORS. PT RECEIVED STEROID SHOTS YESTERDAY TO THE LOWER BACK. PT REPORTS SHE HAS HAD AN EPISODE OF THIS SAME THING HAPPENING A COUPLE MONTHS AGO WHEN SHE WAS MESSING WITH HER HEARING AID. PT APPEARS ANXIOUS AND ASKE "WHAT HAPPENS WHEN SOMEONE DEVELOPS CANCER IN THE EAR BECAUSE SOMNEONE SAID I COULD HAVE IT SINCE I TAKE LASIX". "I JUST WANT SOMEONE TO LOOK IN MY EAR, DEEP DOWN, AND SEE IF I COULD HAVE CANCER IN MY EAR". DAUGHTER ARRIVES AT BEDSIDE AND STATES THAT PT WENT FROM DARK TO THE SUNLIGHT THIS MORNING WHEN SHE IMMEDIATELY STARTED HAVING FLASHES OF LIGHTS CAUSING THE PT TO START SHAKING AND HOLLERING. PAIN: Patient rates pain as 0 out of 10, NO CURRENT PAIN, THOUGH PAIN LAST NIGHT TO HEAD. NEURO: Pupils equally round and reactive to light, Able to close eyes, Face symmetrical, Speech normal, Visual changes described as, flashes of light, to bilateral eyes, FLASHED OF LIGHT WHEN MOVED FROM DARKER AREA TO DIRECT SUNLIGHT, no facial droop, no facial numbness, Hand grasps equal, Upper extremity strength strong, Lower extremity strength strong, no associated dizziness present, no associated loss of consciousness, Associated with nausea, Associated with weakness, GENERALIZED. ENT: Ear assessment findings include ear normal to inspection, Nasal assessment findings include nose normal to inspection, Mouth and throat assessment findings include mouth inspection normal. NOTES: Patient tolerated procedure well. SAFETY: Side rails up, Cart/Stretcher in lowest position, Family &a-1R&a+25V*p+0X*i8700M*c202B*c15G*c2P*p-0X&a-25V&a+1R Name: Chrissy Estrada : 1930 F85 MedRec: [id number] AcctNum: [id number] Prepared: [facility] Sep 22, 2016 14:08 by Interface Page 3 of 13 pMD [facility] EMERGENCY RECORD at bedside, Call light within reach, Hospital ID band on. NURSING ASSESSMENT: SKIN (12:06 CJEF) SKIN: Skin assessment findings include skin warm, Skin dry, Skin normal in color. RONNIE SCALE: (3) Sensory perception slightly limited, (3) Skin is occasionally moist, (2) Patient is chairfast, (3) Slightly limited mobility, (3) Adequate nutrition, (2) Patient has potential problem moving, Ronnie Risk Total: 16. NOTES: Patient tolerated procedure well. SAFETY: Side rails up, Cart/Stretcher in lowest position, Family at bedside, Call light within reach, Hospital ID band on. NURSING PROCEDURE: BEDSIDE SIRS TESTING (13:38 CJEF) SCORES: Heart Rate 55-109 (0), Temp range 96.8-101.1 (0), respiratory rate 12-24 (0), Latest WBC 3-14.9 (0), Mental Status altered: no (0), Yes, Infection or Suspected Infection. SIRS: Yes, Infection or Suspected Infection. NURSING PROCEDURE: CLIENT APPLICATION SUPPORT ENGINEER (11:58 CJEF) PATIENT IDENTIFIER: Patient actively involved in identification process, Patient's identity verified by patient stating name, Patient's identity verified by patient stating date. CLIENT APPLICATION SUPPORT ENGINEER: Patient placed on cardiac monitor technician, Heart rate: 87, showing normal sinus rhythm, Patient placed on non-invasive blood pressure monitor, Patient placed on continuous pulse oximetry, Adult/pediatric oxisensor applied. FOLLOW-UP: After procedure, alarms set and on, After procedure, patient tolerating monitoring. NOTES: Patient tolerated procedure well. SAFETY: Side rails up, Cart/Stretcher in lowest position, Family at bedside, Call light within reach, Hospital ID band on. NURSING PROCEDURE: DISCHARGE NOTE (13:54 CJEF) DISCHARGE: Patient discharged to home, in a wheelchair, family driving, accompanied by other family member, Summary of Care printed/ provided, Patient requested and was provided an electronic copy of Discharge Instructions, Transition record given to patient, Discharge instructions given to patient, Simple or moderate discharge teaching performed, Prescriptions given and instructions on side effects given, Medication reconciliation form given, Above person(s) verbalized understanding of discharge instructions and follow-up care, Patient treated and evaluated by physician. BELONGINGS: Belongings remain with patient. NOTES: Patient tolerated procedure well. SAFETY: Side rails up, Cart/Stretcher in lowest position, Family at bedside, Call light within reach, Hospital ID band on. NURSING PROCEDURE: IV &a-1R&a+25V*p+0X*c2546B*c202B*c15G*c2P*p-0X&a-25V&a+1R Name: Chrissy Estrada : 1930 F85 MedRec: [id number] AcctNum: [id number] Prepared: Angela Sep 22, 2016 14:08 by Interface Page 4 of 13 pMD [facility] EMERGENCY RECORD PATIENT IDENITIFIER: Patient actively involved in identification process, Patient's identity verified by patient stating name, Patient's identity verified by patient stating date. (11:59 CJEF) IV SITE 1: IV therapy indicated for hydration, IV therapy indicated for medication administration, IV established, to the right wrist, using a 20 gauge catheter, in one attempt, IV site prepped with CHLORAPREP, Saline lock established, Flushed with normal saline (mls): 10. (11:59 CJEF) FOLLOW-UP SITE 1: After procedure, sterile transparent dressing applied. (11:59 CJEF) After procedure, 2x2 dressing applied, IV discontinued, due to patient being discharged, catheter intact. (13:44 CJEF) NOTES: Patient tolerated procedure well, Procedure done by HERB SOLER. (11:59 CJEF) SAFETY: Side rails up, Cart/Stretcher in lowest position, Family at bedside, Call light within reach, Hospital ID band on. (11:59 CJEF) NURSING PROCEDURE: LAB DRAW (12:32 CJEF) PATIENT IDENTIFIER: Patient actively involved in identification process, Patient's identity verified by patient stating name, Patient's identity verified by patient stating date. LAB DRAW: Initial lab draw performed, from vascular access device, Notes: LAB AT [facility] TO COLLECT BLOOD. NOTES: Patient tolerated procedure well. SAFETY: Side rails up, Cart/Stretcher in lowest position, Family at bedside, Call light within reach, Hospital ID band on. NURSING PROCEDURE: NURSE NOTES NURSES NOTES: Patient in no apparent distress, Patient resting quietly, Warm blanket given to patient. (12:01 CJEF) Patient in no apparent distress, Patient resting quietly, Notes: PT RESTING IN BED QUIETLY WITH FAMILY AT BEDSIDE. NO DISTRESS NOTED. (13:00 CJEF) NURSING PROCEDURE: TRANSPORT TO TESTS PATIENT IDENTIFIER: Patient actively involved in identification process, Patient's identity verified by patient stating name, Patient's identity verified by patient stating date. (12:34 CJEF) TRANSPORT TO TESTS: Transport indicated to facilitate diagnosis, Patient transported to CT scan, via cart, Accompanied by x-ray marine diesel technician. (12:34 CJEF) FOLLOW-UP: After procedure, patient returned to emergency department. (12:45 CJEF) NOTES: Patient tolerated procedure well. (12:34 CJEF) SAFETY: Side rails up, Cart/Stretcher in lowest position, Family at bedside, Call light within reach, Hospital ID band on. (12:34 CJEF) &a-1R&a+25V*p+0X*a8802V*c202B*c15G*c2P*p-0X&a-25V&a+1R Name: Chrissy Estrada : 1930 F85 MedRec: [id number] AcctNum: [id number] Prepared: Angela Sep 22, 2016 14:08 by Interface Page 5 of 13 pMD [facility] EMERGENCY RECORD NURSING PROCEDURE: URINE COLLECTION (12:55 CJEF) PATIENT IDENTIFIER: Patient actively involved in identification process, Patient's identity verified by patient stating name, Patient's identity verified by patient stating date. URINE COLLECTION FEMALE: Urine collected by straight cath, using a 5 fr catheter kit, urine yellow in color. NOTES: Patient tolerated procedure well. SAFETY: Side rails up, Cart/Stretcher in lowest position, Family at bedside, Call light within reach, Hospital ID band on. ORDER DETAILS Order Name: CLIENT APPLICATION SUPPORT ENGINEER ED, Status: Done, Time: 12:24 09/22/2016, User: MEG, - Ordered for: MD Maldonado Lloyd, - Entered by: RYDER Baumann, Francoise [facility] Sep 22, 2016 12:24, - Quantity: 1, Order Name: CATH STRAIGHT ED, Status: Done, Time: 12:58 09/22/2016, User: MEG, - Ordered for: MD Maldonado Lloyd, - Entered by: RYDER Baumann, Francoise [facility] Sep 22, 2016 12:57, - Quantity: 1, Order Name: CBC with Differential, Status: Active, Time: 12:21 09/22/2016, User: CLOTILDE, - Ordered for: MD Maldonado Lloyd, - Entered by: MD Maldonado Lloyd - [facility] Sep 22, 2016 12:21, - Quantity: 1, Order Name: Comprehensive Metabolic Panel, Status: Active, Time: 12:21 09/22/2016, User: CLOTILDE, - Ordered for: MD Maldonado Lloyd, - Entered by: MD Maldonado Lloyd - Angela Sep 22, 2016 12:21, - Quantity: 1, Order Name: CT Brain WO Con, Status: Active, Time: 12:20 09/22/2016, User: CLOTILDE, - Ordered for: MD Maldonado Lloyd, - Entered by: MD Maldonado Lloyd - Angela Sep 22, 2016 12:20, - Quantity: 1, Order Name: Culture, Urine, Status: Active, Time: 12:21 09/22/2016, User: LL, - Ordered for: MD Maldonado Lloyd, - Entered by: MD Maldonado Lloyd - Angela Sep 22, 2016 12:21, - Quantity: 1, Order Name: SALINE LOCK, Status: Done, Time: 12:24 09/22/2016, User: MEG, - Ordered for: MD Maldonado Lloyd, - Entered by: RYDER Baumann Cassie [facility] Sep 22, 2016 12:24, - Quantity: 1, Order Name: Thyroid Stimulating Hormone, Status: Active, Time: 12:21 09/22/2016, User: LLDO, &a-1R&a+25V*p+0X*v8586U*c202B*c15G*c2P*p-0X&a-25V&a+1R Name: Chrissy Estrada : 1930 F85 MedRec: [id number] AcctNum: [id number] Prepared: MonSep 22, 2016 14:08 by Interface Page 6 of 13 pMD [facility] EMERGENCY RECORD - Ordered for: MD Maldonado Lloyd, - Entered by: MD Maldonado Lloyd - [facility] Sep 22, 2016 12:21, - Quantity: 1, Order Name: Urinalysis w/ Rflx Microscopic, Status: Active, Time: 12:21 09/22/2016, User: CLOTILDE, - Ordered for: MD Maldonado Lloyd, - Entered by: MD Maldonado Lloyd - [facility] Sep 22, 2016 12:21, - Quantity: 1. MEDICATION ADMINISTRATION SUMMARY Drug Name: Septra DS, Dose Ordered: 1 tab(s), Route: Oral, Status: Given, Time: 13:43 09/22/2016, Drug Name: Valium oral, Dose Ordered: 5 mg, Route: Oral, Status: Given, Time: 12:33 09/22/2016, Drug Name: Toradol intravenous, Dose Ordered: 15 mg, Route: IV Push, Status: Given, Time: 12:32 09/22/2016, Drug Name: Zofran intravenous, Dose Ordered: 8 mg, Route: IV Push, Status: Given, Time: 12:32 09/22/2016, Detailed record available in Medication Service section. MEDICATION SERVICE Septra DS: Order: Septra DS (sulfamethoxazole/trimethoprim) - Dose: 1 tab(s) : Oral Schedule: Now Ordered by: Max Maldonado MD Entered by: Max Maldonado MD [facility] Sep 22, 2016 13:33 Documented as given by: Francoise Baumann RN [facility] Sep 22, 2016 13:43 Patient, Medication, Dose, Route and Time verified prior to administration. Amount given: 1 TAB, Site: Medication administered P.O., Patient appears Awake and alert- acceptable, Correct patient, time, route, dose and medication confirmed prior to administration, Patient advised of actions and side-effects prior to administration, Allergies confirmed and medications reviewed prior to administration, Patient tolerated procedure well, Patient in position of comfort, Side rails up, Cart in lowest position, Family at bedside. : Follow Up : Response assessment performed, No signs or symptoms of allergic reaction noted, Advised not to ambulate without assistance, Patient in position of comfort, Side rails up, Cart in lowest position, Family at bedside. (13:44 [facility]) Toradol intravenous: Order: Toradol intravenous (ketorolac tromethamine) - Dose: 15 mg : IV Push Schedule: Now Ordered by: Max Maldonado MD Entered by: Max Maldonado MD [facility] Sep 22, 2016 12:23 Documented as given by: Francoise Baumann RN [facility] Sep 22, 2016 12:32 Patient, Medication, Dose, Route and Time verified prior to administration. Amount given: 15 MG, IV SITE #1 IVP, subsequent different &a-1R&a+25V*p+0X*f3088B*c202B*c15G*c2P*p-0X&a-25V&a+1R Name: Chrissy Estrada : 1930 F85 MedRec: [id number] AcctNum: [id number] Prepared: [facility] Sep 22, 2016 14:08 by Interface Page 7 of 13 pMD [facility] EMERGENCY RECORD medication, Slowly, Awake and alert- acceptable, Connections checked prior to administration, Line traced prior to administration, Catheter placement confirmed via flush prior to administration, IV site without signs or symptoms of infiltration during medication administration, No swelling during administration, No drainage during administration, IV flushed after administration, Correct patient, time, route, dose and medication confirmed prior to administration, Patient advised of actions and side-effects prior to administration, Allergies confirmed and medications reviewed prior to administration, Patient tolerated procedure well, Patient in position of comfort, Side rails up, Cart in lowest position, Family at bedside. : Follow Up : Response assessment performed, No signs or symptoms of allergic reaction noted, Advised not to ambulate without assistance, Patient in position of comfort, Side rails up, Cart in lowest position, Family at bedside. (13:44 [facility]) Valium oral: Order: Valium oral (diazepam) - Dose: 5 mg : Oral Schedule: Now Ordered by: Max Maldonado MD Entered by: Max Maldonado MD [facility] Sep 22, 2016 12:24 Documented as given by: Francoise Baumann RN [facility] Sep 22, 2016 12:33 Patient, Medication, Dose, Route and Time verified prior to administration. Amount given: 5 MG, Site: Medication administered P.O., Patient appears Awake and alert- acceptable, Correct patient, time, route, dose and medication confirmed prior to administration, Patient advised of actions and side-effects prior to administration, Allergies confirmed and medications reviewed prior to administration, Patient tolerated procedure well, Patient in position of comfort, Side rails up, Cart in lowest position, Family at bedside. : Follow Up : Response assessment performed, No signs or symptoms of allergic reaction noted, Advised not to ambulate without assistance, Patient in position of comfort, Side rails up, Cart in lowest position, Family at bedside. (13:44 [facility]) Zofran intravenous: Order: Zofran intravenous (ondansetron HCl) - Dose: 8 mg : IV Push Schedule: Now Ordered by: Max Maldonado MD Entered by: Max Maldonado MD [facility] Sep 22, 2016 12:23 Documented as given by: Francoise Baumann RN [facility] Sep 22, 2016 12:32 Patient, Medication, Dose, Route and Time verified prior to administration. Amount given: 8 MG, IV SITE #1 IVP, subsequent different medication, Slowly, Awake and alert- acceptable, Connections checked prior to administration, Line traced prior to administration, Catheter placement confirmed via flush prior to administration, IV site without signs or symptoms of infiltration during medication administration, No swelling during administration, No drainage during administration, IV flushed after administration, Correct patient, time, route, dose and medication confirmed prior to administration, &a-1R&a+25V*p+0X*f8090B*c202B*c15G*c2P*p-0X&a-25V&a+1R Name: Chrissy Estrada : 1930 F85 MedRec: [id number] AcctNum: [id number] Prepared: Angela Sep 22, 2016 14:08 by Interface Page 8 of 13 pMD [facility] EMERGENCY RECORD Patient advised of actions and side-effects prior to administration, Allergies confirmed and medications reviewed prior to administration, Patient tolerated procedure well, Patient in position of comfort, Side rails up, Cart in lowest position, Family at bedside. : Follow Up : Response assessment performed, No signs or symptoms of allergic reaction noted, Advised not to ambulate without assistance, Patient in position of comfort, Side rails up, Cart in lowest position, Family at bedside. (13:44 CJEF) HPI GENERAL (12:28 LLDO) CHIEF COMPLAINT: Patient presents for evaluation of when pt moved from dark house into bright sunlight this morning en route to physician appt she experienced sudden onset, for about 30 min, of wildly flashing lights, blindingly bright. also had hard shaking for about the same period. marked anxiety. had severe headache yestrday but not now. no recent trauma or fever or any s-sx of illness. had very similar episode once before when her bluetooth malfunctioned. HISTORIAN: History provided by patient, History provided by patient's family, DAUGHTER. MECHANISM OF INJURY: Unknown mechanism, Mechanism of injury is unknown, No alcohol use associated with this incident, No drug use associated with this incident, No domestic violence associated with this incident. LOCATION: Symptoms are generalized. QUALITY: Pain is dull in nature. SEVERITY: Maximum severity of symptoms mild, Currently symptoms are mild. TIME COURSE: Sudden onset of symptoms, Symptoms are improving, worst of sx resolving now, are constant. ASSOCIATED WITH: No associated symptoms. EXACERBATED BY: Patient's condition exacerbated by nothing, Patient's condition exacerbated by bright lights???. RELIEVED BY: Patient's condition relieved by nothing. ROS CONSTITUTIONAL: Negative constitutional review of systems. (12:35 LLDO) EYES: Historian reports vision changes, ONLY IN HPI. (12:35 LLDO) ENT: Negative ears, nose, throat review of systems, Historian denies epistaxis, denies rhinorrhea, denies sinus pain, denies sore throat. (12:38 LLDO) MUSCULOSKELETAL: Negative musculoskeletal review of systems, Historian denies arthralgias, denies back pain, denies injury, denies myalgias, denies neck pain. (12:38 LLDO) SKIN: Negative skin review of systems, Historian denies cellulitis, denies rash, denies skin changes, denies skin lesions. (12:38 LLDO) &a-1R&a+25V*p+0X*q5479C*c202B*c15G*c2P*p-0X&a-25V&a+1R Name: Chrissy Estrada : 1930 F85 MedRec: [id number] AcctNum: [id number] Prepared: Angela Sep 22, 2016 14:08 by Interface Page 9 of 13 pMD [facility] EMERGENCY RECORD NEUROLOGIC: Historian denies confusion, denies dizziness, denies dysphasia, denies focal weakness, reports headache, denies irritability, denies lethargy, denies mental status changes. pt is non-mobild d.t. previous surgeries. (12:35 LLDO) HEMO/LYMPHATIC: Normal hematologic/lymphatic system review, Historian denies abnormal blood clotting, denies gum bleeding, denies petechiae. (12:38 LLDO) ALLERGIC/IMMUNOLOGIC: Normal allergy/immunologic system review, Historian denies eczema, denies environmental allergies, denies food allergies. (12:38 LLDO) PSYCHIATRIC: Negative psychiatric review of systems, Historian denies alcohol abuse, denies anxiety, denies depression, denies drug abuse, denies hallucinations. (12:38 LLDO) NOTES: All systems reviewed, negative except as described above. (12:35 LLDO) PAST MEDICAL HISTORY MEDICAL HISTORY: Flu vaccine up to date, Tetanus not up to date, Pneumococcal vaccine up to date, Past medical history includes cardiac history, Past medical history includes gastrointestinal disease, gastroesophageal reflux disease, Past medical history includes history of hypertension, Family does not want her to take meds, Past medical history includes musculoskeletal disorder, arthritis, Past medical history includes cardiac history, arrhythmia, atrial fibrillation, Past medical history includes cardiac history, congestive heart failure. Notes: chronic back pain. sciatica, COPD. (12:03 CJEF) FEMALE SURGICAL HISTORY: NERVE STIMULATOR PLACED IN BACK ON 09-15-[address] VACA, Surgical history of nephrectomy, on the right, gall bladder removal, bilateral hip replacement, , cataract surgery. (12:03 CJEF) PSYCHIATRIC HISTORY: Psychiatric history includes, depression. (12:03 CJEF) SOCIAL HISTORY: Patient denies alcohol use, Patient denies drug use, Patient has no smoking history. (12:03 CJEF) NOTES: Nursing records reviewed, Agree with nursing records, Medication list reviewed. (12:37 LLDO) PHYSICAL EXAM CONSTITUTIONAL: Vital signs reviewed, Patient afebrile, Pulse normal, Blood pressure, BP ELEVATED SLIGHTLY, Respiratory rate normal, Patient appears non toxic, Patient appears pain free, Patient alert and oriented to person, place and time. (12:36 LLDO) HEAD: Head exam normal, Head exam included findings of head atraumatic, normocephalic. (12:38 LLDO) EYES: Eye exam normal, Eye exam included findings of eyelids normal to inspection, Pupils equally round and reactive to light, Extraocular muscles intact. (12:38 LLDO) ENT: ENT exam normal, Ear exam normal, Nose exam normal. (12:38 &a-1R&a+25V*p+0X*t8492H*c202B*c15G*c2P*p-0X&a-25V&a+1R Name: Chrissy Estrada : 1930 F85 MedRec: [id number] AcctNum: [id number] Prepared: Angela Sep 22, 2016 14:08 by Interface Page 10 of 13 pMD [facility] EMERGENCY RECORD LLDO) NECK: has fine left carotid bruit. (12:36 LLDO) RESPIRATORY CHEST: Respiratory and chest exam normal, Respiratory exam included findings of, Chest exam included findings of chest movement symmetrical, Chest expansion equal. (12:38 LLDO) CARDIOVASCULAR: Cardiovascular exam included findings of heart rate regular rate and rhythm, Heart sounds with, systolic murmur present, grade 3/6. (12:36 LLDO) ABDOMEN FEMALE: Abdominal exam normal, Abdominal exam included findings of abdomen nontender, Bowel sounds normal, no peritoneal signs. (12:38 LLDO) BACK: Back exam normal, Back exam included findings of normal inspection, range of motion normal. (12:38 LLDO) UPPER EXTREMITY: Upper extremity exam normal, Upper extremity exam included findings of inspection normal, Range of motion normal. (12:38 LLDO) LOWER EXTREMITY: Lower extremity exam normal, Lower extremity exam included findings of inspection normal, Range of motion normal. (12:38 LLDO) NEURO: Neuro exam normal, Neuro exam findings include patient oriented to person, place and time, Speech normal, Matilde coma scale 15. (12:38 LLDO) SKIN: Skin exam normal, Skin exam included findings of skin warm, dry, and normal in color, no rash. (12:38 LLDO) PSYCHIATRIC: Psychiatric exam normal, Psychiatric exam included findings of patient oriented to person place and time, Normal affect. (12:38 LLDO) EVENTS TRANSFER: Triage to Emergency Main ED -02. (MonSep 22, 2016 11:57 CJEF) Removed from Emergency Main ED -02. (13:54 CJEF) PROBLEM LIST No recorded problems DIAGNOSIS (13:34 LLDO) FINAL: PRIMARY: UTI SITE NOT SPECIFIED. DISPOSITION PATIENT: Disposition Type: Discharge, Disposition: *Discharge Home. (13:34 LLDO) Patient left the department. (13:54 CJEF) INSTRUCTION (13:35 LLDO) DISCHARGE: UTI CYSTITIS FEMALE ADULT, UTI PYELONEPHRITIS FEMALE ADULT. FOLLOWUP: MD Maravilla Jacques, [facility] [address], , &a-1R&a+25V*p+0X*d7557H*c202B*c15G*c2P*p-0X&a-25V&a+1R Name: Chrissy Estrada : 1930 F85 MedRec: [id number] AcctNum: [id number] Prepared: MonSep 22, 2016 14:08 by Interface Page 11 of 13 pMD [facility] EMERGENCY RECORD Follow up with Primary Care Physician in 7-10 days. SPECIAL: Follow-up with your PCP. PRESCRIPTION (13:34 LLDO) Septra DS: TABLET : 800 mg-160 mg : ORAL : Quantity: 1 Unit: tab(s) Route: ORAL Schedule: 2 times a day (before meals) Dispense: 20 May substitute. Refills: No Refills . NOTES: No Refills. ADMIN (13:35 LLDO) DIGITAL SIGNATURE: MD Maldonado Lloyd. RESULTS (13:06 CJEF) LABORATORY: Urine Microscopic Collection DT: [facility] Sep 22, 2016 13:01, See comment below , Comment please do micro . Urinalysis w/ Rflx Microscopic Collection DT: [facility] Sep 22, 2016 13:01, See comment below , Comment please do micro , Color Yellow , Range (Yellow), Clarity Slightly Cloudy , Range (Clear), Specific [place], Urine 1.015 , Range (1.005-1.030), pH, Urine 6.5 , Range (5.0-9.0), *Leukocyte Moderate - H , Range (Negative), *Nitrite Positive - H , Range (Negative), Protein, Urine (Dipstick) Negative mg/dL, Range (Neg-Trace), Glucose, Urine (Dipstick) Negative mg/dL, Range (Negative), Ketone, Urine Negative mg/dL, Range (Negative), Urobilinogen 0.2 mg/dL, Range (0.2-1.0), Bilirubin Negative , Range (Negative), Blood, Urine Negative , Range (Negative). Comprehensive Metabolic Panel Collection DT: [facility] Sep 22, 2016 12:35, Sodium 141 mmol/L, Range (136-145), Potassium 4.3 mmol/L, Range (3.5-5.1), *Chloride 96 - L mmol/L, Range (98-107), *Carbon Dioxide 32 - H mmol/L, Range (23-31), Anion Gap 17 mmol/L, Range (10-20), *BUN (Urea Nitrogen) 27 - H mg/dL, Range (9.8-20.1), Creatinine 1.03 mg/dL, Range (0.6-1.1), Estimated GFR-MDRD 51 , Reference Range for Estimated GFR: Greater than 90, mL/min/1.73 m2 NOTE: The MDRD equation has not been validated for use, with the elderly (over 70 years of age), women, patients with, serious comorbid condition or persons with extremes of body size, muscle, mass, or nutritional status. , *Glucose 79 - L mg/dL, Range (83-110), Calcium 9.3 mg/dL, Range (7.8-10.44), Bilirubin, Total 0.4 mg/dL, Range (0.2-1.2), &a-1R&a+25V*p+0X*h4250P*c202B*c15G*c2P*p-0X&a-25V&a+1R Name: Chrissy Estrada : 1930 F85 MedRec: [id number] AcctNum: [id number] Prepared: MonSep 22, 2016 14:08 by Interface Page 12 of 13 pMD [facility] EMERGENCY RECORD Protein, Total 7.9 g/dL, Range (5.8-8.1), NOTE: Plasma values are generally 0.3 to 0.5 g/dL higher than serum values, due to the presence of fibrinogen. , *Albumin 3.3 - L g/dL, Range (3.4-4.8), *Globulin 4.6 - H g/dL, Range (2.4-3.5), *Alb/Glob Ratio 0.7 - L g/dL, Range (1.2-2.2), Alkaline Phosphatase 102 U/L, Range (40-150), AST (SGOT) 30 U/L, Range (5-34), ALT (SGPT) 21 U/L, Range (0-55). CBC with Differential Collection DT: MonSep 22, 2016 12:35, White Blood Cell (WBC) Count 10.5 thou/uL, Range (4.8-10.8), Red Blood Cell (RBC) Count 4.98 mill/uL, Range (4.20-5.40), Hemoglobin 13.4 g/dL, Range (12.0-16.0), Hematocrit 42.6 %, Range (36.0-47.0), Mean Corpuscular Volume 85.7 fl, Range (81.0-99.0), Mean Corpuscular Hemoglobin 27.0 pg, Range (27.0-31.0), *Mean Corpuscular HGB CONC 31.5 - L g/dL, Range (32.0-36.0), *RBC Distribution Width 16.0 - H %, Range (11.5-14.5), Platelet Count 217 thou/uL, Range (130-400), Mean Platelet Volume 8.8 fL, Range (7.4-10.4), %Neutrophils 67.3 %, Range (42.0-75.0), %Lymphocytes 23.4 %, Range (21.0-51.0), %Monocytes 8.3 %, Range (0.0-10.0), %Eosinophils 0.2 %, Range (0.0-10.0), %Basophils 0.8 %, Range (0.0-1.0), *#Neutrophils 7.1 - H thou/uL, Range (1.40-6.50), #Lymphocytes 2.5 thou/uL, Range (1.20-3.40), *#Monocytes 0.9 - H thou/uL, Range (0.11-0.59), #Eosinphils 0.0 thou/uL, Range (0.0-0.7), #Basophils 0.1 thou/uL, Range (0.0-0.2). Carr: MEG=RYDER Baumann, Francoise LLDO=MD Joel, Max &a-1R&a+25V*p+0X*e2644I*c202B*c15G*c2P*p-0X&a-25V&a+1R Name: Chrissy Estrada : 1930 F85 MedRec: [id number] AcctNum: [id number] Prepared: MonSep 22, 2016 14:08 by Interface Page 13 of 13 pMD [facility] MEDICATION RECONCILIATION You were seen in the Emergency Department on: MonSep 22, 2016 KNOWN ALLERGIES ceftriaxone sodium (Unconfirmed) Cipro tablet ciprofloxacin (Unconfirmed) ciprofloxacin HCl (Unconfirmed) codeine (Unconfirmed) codeine sulfate latex (Unconfirmed) Latex, Natural Rubber morphine (Unconfirmed) morphine (bulk) MEDICATIONS GIVEN WHILE IN THE EMERGENCY DEPARTMENT Toradol intravenous (ketorolac tromethamine) - Dose: 15 milligram(s) : IV Push Zofran intravenous (ondansetron HCl) - Dose: 8 milligram(s) : IV Push Valium oral (diazepam) - Dose: 5 milligram(s) : Oral Septra DS (sulfamethoxazole/trimethoprim) - Dose: 1 tab(s) : Oral HOME MEDICATIONS CONTINUE PRESCRIBED Anti-Diarrheal (loperamide) : TABLET : Strength - 2 mg : ORAL Continue as prescribed Patient had been takin mg Oral As Needed. Cartia XT : CAPSULE, EXT RELEASE 24 HR : Strength - 120 mg : ORAL Continue as prescribed Patient had been taking: once a day. carvedilol : TABLET : Strength - 25 mg : ORAL Continue as prescribed Patient had been taking: Dose unknown Lasix : TABLET : Strength - 20 mg : ORAL Continue as prescribed Patient had been takin tab(s) Oral 2 times a day. Lyrica : CAPSULE : Strength - 150 mg : ORAL Continue as prescribed Patient had been takin mg Oral 2 times a day. &a-1R&a+25V*p+0X*u1486Q*c202B*c15G*c2P*p-0X&a-25V&a+1R Name: Chrissy Estrada : 1930 F85 MedRec: [id number] AcctNum: [id number] Prepared: MonSep 22, 2016 14:08 by Interface pMD [facility] MEDICATION RECONCILIATION [place] : TABLET : Strength - 10 mg-325 mg : ORAL Continue as prescribed Patient had been taking: every 8 hours PRN. Phenergan : TABLET : Strength - 25 mg : ORAL Continue as prescribed Patient had been taking: As Needed. ProAir HFA : HFA AEROSOL WITH ADAPTER (GRAM) : Strength - 90 mcg : INHALATION Continue as prescribed Patient had been taking: Dose unknown sertraline : TABLET : Strength - 25 mg : ORAL Continue as prescribed Patient had been taking: once a day. Notes from the emergency department Reviewed with family Reviewed with patient PRESCRIPTIONS (1) &a-1R&a+25V*p+0X*l1205R*c202B*c15G*c2P*p-0X&a-25V&a+1R Name: Chrissy Estrada : 1930 F85 MedRec: [id number] AcctNum: [id number] Prepared: MonSep 22, 2016 14:08 by Interface pMD [facility]
== END 2016-09-22 13:54 | disposition home or self-care (01) ==
LOC: MADERS 11:50
DX: N39.0 Urinary tract infection, site not specified (principal); K21.9 Gastro-esophageal reflux disease without esophagitis; I10 Essential (primary) hypertension; I48.91 Unspecified atrial fibrillation; J44.9 Chronic obstructive pulmonary disease, unspecified; I50.9 Heart failure, unspecified; F32.9 Major depressive disorder, single episode, unspecified
CPT/HCPCS: 36415; 51701; 70450; 80053; 81003; 81015; 84443; 85025; 87077; 87086; 87186; 96374; 96375; A4353; J1885; J2405

== ENCOUNTER 2017-05-05 20:39 | Inpatient (IN) | payer MEDICARE, MEDICAID ==
[2017-05-05 21:27] LABS: Bilirubin Negative (Negative); Blood, Urine Trace (Negative); Clarity Cloudy (Clear); Glucose, Urine (Dipstick) Negative (Negative); Leukocyte Large (Negative); Nitrite Positive (Negative); Protein, Urine (Dipstick) 100 mg/dL (Neg-Trace); pH, Urine 8.5 (5.0-9.0)
[2017-05-05 21:28] LABS: Bacteria/HPF 4+ HPF (None Seen); Renal Epithelial 0-3 HPF (0-3); Squamous Epithelial 0-3 HPF (0-3); Transitional Epithelial 0-3 HPF (0-3)
[2017-05-05] MEDS ORDERED: Sulfameth/Trimethoprim DS 800-160mg TAB ONE (22:34)
[2017-05-05] MEDS ORDERED: Ketorolac Tromethamine 30 MG/ML VIAL ONE (22:34)
[2017-05-05] MEDS ORDERED: Gentamicin 80 MG/2 ML VIAL ONE (22:34)
--- NOTE | 2017-05-05 22:53 | RAD ---
UPRIGHT PORTABLE CHEST ONE VIEW 05/05/17 HISTORY: 86-year-old female with altered mental status. There is some cardiomegaly with bilateral vascular congestion and increased linear and interstitial markings bilaterally but little change from a 08/05/16 study. 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 No confluent pneumonia. IMPRESSION: Cardiomegaly with bilateral vascular congestion and increased linear and interstitial markings, stab le from 08/05/16. No significant new process. POS: [facility]
[2017-05-05] MEDS ORDERED: Ciprofloxacin 500 MG TAB ONE (23:33)
[2017-05-05 23:34] LABS: #Basophils 0.1 thou/uL (0.0-0.2); #Lymphocytes 2.1 thou/uL (1.20-3.40); #Monocytes 0.8 thou/uL (0.11-0.59); #Neutrophils 4.8 thou/uL (1.40-6.50); %Basophils 0.8 % (0.0-1.0); %Eosinophils 0.4 % (0.0-10.0); %Lymphocytes 27.1 % (21.0-51.0); %Monocytes 10.1 % (0.0-10.0); %Neutrophils 61.6 % (42.0-75.0); ALT (SGPT) 24 U/L (8-55); AST (SGOT) 35 U/L (5-34); Albumin 2.8 g/dL (3.4-4.8); Alkaline Phosphatase 95 U/L (40-150); Anion Gap 15 mmol/L (10-20); BUN (Urea Nitrogen) 25 mg/dL (9.8-20.1); Calc. Creatinine Clearance 0 mL/min (70-130); Calcium 8.9 mg/dL (7.8-10.44); Carbon Dioxide 32 mmol/L (23-31); Chloride 100 mmol/L (98-107); Estimated GFR-MDRD 66; Globulin 4.7 g/dL (2.4-3.5); Glucose 84 mg/dL (83-110); Hemoglobin 12.4 g/dL (12.0-16.0); Lipase 10 U/L (8-78); Mean Corpuscular HGB CONC 31.2 g/dL (32.0-36.0); Mean Corpuscular Hemoglobin 27.7 pg (27.0-31.0); Mean Corpuscular Volume 88.8 fl (81.0-99.0); Mean Platelet Volume 9.5 fL (7.4-10.4); Platelet Count 189 thou/uL (130-400); Potassium 3.9 mmol/L (3.5-5.1); Protein, Total 7.5 g/dL (6.0-8.3); RBC Distribution Width 14.3 % (11.5-14.5); Red Blood Cell (RBC) Count 4.47 mill/uL (4.20-5.40); Sodium 143 mmol/L (136-145); White Blood Cell (WBC) Count 7.8 thou/uL (4.8-10.8)
[2017-05-05] MEDS ORDERED: Heparin 5,000 UNITS/ML VIAL ONE (23:35)
[2017-05-05] MEDS ORDERED: Enoxaparin Sodium 40 MG/0.4 ML SYRINGE ONE (23:53)
[2017-05-05] MEDS ORDERED: HYDROcodone/Acetaminophen 10/325 mg Tablet ONE (23:53)
[2017-05-06] MEDS ORDERED: Sodium Chloride 0.9% 1,000 ML IV SCH ×2 (00:46→02:30)
[2017-05-06] MEDS ORDERED: Guaifenesin DM 100-10/5 ML UDCUP PO PRN (00:46)
[2017-05-06] MEDS ORDERED: Ondansetron HCl/PF 4 MG/2 ML Vial SLOW IVP PRN (00:46)
[2017-05-06] MEDS ORDERED: Zolpidem Tartrate 5 MG TAB PO PRN (00:46)
[2017-05-06] MEDS ORDERED: Bisacodyl 5 MG TAB PO PRN (00:46)
[2017-05-06] MEDS ORDERED: Loperamide HCl 2 MG CAP PO PRN ×2 (00:46)
[2017-05-06] MEDS ORDERED: Lantiseptic Ointment 130 GM JAR TOP PRN (02:26)
[2017-05-06] MEDS ORDERED: ALPRAZolam 0.5 MG TAB PO PRN (02:30)
[2017-05-06 03:53] VITALS: BMI 33.6
[2017-05-06] MEDS ORDERED: GENTAMICIN SULFATE IVPB SCH (06:00)
[2017-05-06] MEDS: Enoxaparin Sodium 40 MG/0.4 ML SYRINGE SC SCH (06:17)
[2017-05-06 06:19] LABS: ALT (SGPT) 24 U/L (8-55); AST (SGOT) 32 U/L (5-34); Albumin 2.6 g/dL (3.4-4.8); Alkaline Phosphatase 89 U/L (40-150); Anion Gap 16 mmol/L (10-20); BUN (Urea Nitrogen) 26 mg/dL (9.8-20.1); Bilirubin, Total 0.9 mg/dL (0.2-1.2); Calc. Creatinine Clearance 56 mL/min (70-130); Calcium 8.6 mg/dL (7.8-10.44); Carbon Dioxide 26 mmol/L (23-31); Chloride 104 mmol/L (98-107); Estimated GFR-MDRD 49; Globulin 4.7 g/dL (2.4-3.5); Glucose 86 mg/dL (83-110); Potassium 3.7 mmol/L (3.5-5.1); Protein, Total 7.3 g/dL (6.0-8.3); Sodium 142 mmol/L (136-145)
[2017-05-06] MEDS ORDERED: Sodium Chloride 0.9% 1,000 ML BAG ONE (06:49)
[2017-05-06 06:51] LABS: Hemoglobin 12.4 g/dL (12.0-16.0); Mean Corpuscular HGB CONC 31.7 g/dL (32.0-36.0); Mean Corpuscular Hemoglobin 27.9 pg (27.0-31.0); Mean Platelet Volume 9.7 fL (7.4-10.4); Platelet Count 200 thou/uL (130-400); RBC Distribution Width 14.1 % (11.5-14.5); Red Blood Cell (RBC) Count 4.43 mill/uL (4.20-5.40); White Blood Cell (WBC) Count 8.8 thou/uL (4.8-10.8)
[2017-05-06 06:52] LABS: MDiff Complete? YES; Neutrophil 68 % (42-75)
[2017-05-06 06:53] LABS: Band 2 % (5-11)
[2017-05-06 06:54] LABS: Lymphocytes 22 % (21-51); Monocytes 8 % (0-10)
[2017-05-06] MEDS: GENTAMICIN SULFATE IVPB SCH ×3 (07:03→22:16)
[2017-05-06] MEDS: Nystatin Cream 15 GM TUBE TOP SCH ×2 (08:30→20:21)
[2017-05-06] MEDS: Pantoprazole 40 MG VIAL IVP SCH (08:30)
[2017-05-06] MEDS: Pregabalin 50 MG CAP PO SCH ×2 (08:31→20:09)
[2017-05-06] MEDS: Carvedilol 6.25 MG TAB PO SCH (08:31)
[2017-05-06] MEDS ORDERED: Sulfameth/Trimethoprim DS 800-160mg TAB PO SCH (09:00)
[2017-05-06] MEDS: HYDROcodone/Acetaminophen 10/325 mg Tablet PO PRN ×3 (10:56→20:18)
--- NOTE | 2017-05-06 12:04 | HP ---
DATE OF ADMISSION: 05/06/2017 ATTENDING PHYSICIAN: Dr. Isabel Massey. CHIEF COMPLAINT: Altered mental status. HISTORY OF PRESENT ILLNESS: This is a pleasant 86-year-old female with history of chronic atrial fibrillation, diastolic heart failure, COPD, hypertension, anxiety and depression, and chronic back pain that presented to the emergency room on 05/05/2017 with complaint by her daughter of disorientation and confusion. Per the daughter, the patient has been getting progressively weak over the last 1-2 weeks. She did sustain a fall earlier this week on Monday and was taken to the emergency room at [facility] and found to have a right bimalleolar nondisplaced fracture. She was released home and instructed to follow up with Orthopedic Surgery, but has unfortunately not been able to see anyone yet. The daughter brought her in , per the ER record because of how weak she was confusion. At baseline, the patient lives with family who helps take care of her. Unfortunately, family is not immediately available at this time to discuss what her baseline typically is or to get any further history of what brought her into the ER. All history is obtained from the ER report as well as the nursing report here. The patient continues to be confused this morning and oriented to name and place only. She is a poor historian. The patient denies any chest pain, abdominal pain or joint pain. She is complaining of some slight nausea this morning, which per report is chronic for her. Otherwise, she denies any vomiting or difficulty with her bowel movements. She is complaining of some mild shortness of breath as well. She does endorse feeling better this morning than she did last night when she initially came in, but again the patient is somewhat confused and disoriented. PAST MEDICAL HISTORY: 1. Chronic diastolic heart failure with an ejection fraction of 55%-60% per echocardiogram in 04/2016. 2. Chronic obstructive pulmonary disease. 3. Chronic respiratory failure on home oxygen. 4. Hypertension. 5. Gastroesophageal reflux disease. 6. Chronic atrial fibrillation, status post IVC filter. She has been deemed not a candidate for anticoagulation due to her risk of fall. 7. Anxiety and depression. 8. Chronic low back and left hip pain. 9. Hypertension. 10. Recent right ankle fracture. PAST SURGICAL HISTORY: 1. Right nephrectomy. 2. Hip replacement x2. 3. Cholecystectomy. 4. IVC filter placement. 5. Bilateral total hip replacement. 6. Dorsal column stimulator for chronic low back pain. ALLERGIES: The patient is allergic to MORPHINE, ROCEPHIN, CIPROFLOXACIN, CODEINE, and LATEX. MEDICATIONS: 1. Sertraline 50 mg once daily. 2. Lyrica 100 mg twice daily. 3. Diltiazem 120 mg once daily. 4. Aspirin 81 mg p.o. daily. 5. Alprazolam 0.5 mg nightly. 6. Hydrocodone/Acetaminophen 10/325 mg once every 6 hours as needed. 7. Promethazine 25 mg as needed for nausea. 8. Carvedilol 6.25 mg daily. 9. Lasix 40 mg PRN for edema FAMILY HISTORY: Noncontributory. SOCIAL HISTORY: The patient lives at home with her daughter. She has no reported history, and a record of alcohol, drugs or tobacco use. Unable to determine what her baseline ADLs are due to no family present at this time. REVIEW OF SYSTEMS: General: The patient denies any fever, weight loss. She does endorse generalized weakness. HEENT: She denies any sore throat, ear pain , runny nose, blurry vision. Cardiovascular: She denies any chest pain, but does complain of some leg swelling. Respiratory: Positive for shortness of breath. Negative for any cough or wheezing, no difficulty breathing. Gastrointestinal: Positive for nausea. Denies any vomiting, diarrhea, constipation or abdominal pain. Genitourinary: She does complain of difficulty urinating and dysuria. She denies any known blood in her urine. Hematologic/Oncology: Denies any easy bruising, easy bleeding, but does complain of some bruises on her right arm from a fall earlier this week. Neurologic: Complains of weakness, generalized, but denies any history of seizures or syncope. PHYSICAL EXAMINATION: VITAL SIGNS: Temperature is 97.4, T-max of 97.8, her pulse has been steady between 110 and 115, respirations are 24, O2 saturation ranged between 92% and 94% on room air. Her blood pressure is 135/77. GENERAL: The patient is alert and oriented to her name and place only. She does seem somewhat confused, but is mostly able to answer questions appropriately. She is calm and cooperative. HEENT: Pupils are equally round and reactive to light. Extraocular movements are intact. Oropharynx is mildly dry, but no erythema or exudates. NECK: Supple, without lymphadenopathy, thyromegaly or carotid bruits. CARDIOVASCULAR: Positive for tachycardia, rate is regular. Normal S1 and S2. RESPIRATORY: Positive for faint crackles at bilateral bases. No diminished aeration. She does have a faint end expiratory wheezing on the left. No respiratory distress. GASTROINTESTINAL: Abdomen is soft, nontender, nondistended with normoactive bowel sounds. GENITOURINARY: Positive for some redness and intertrigo to her perineal area. She has a Howard catheter in place. EXTREMITIES: Positive for right ankle in a soft splint, positive for bilateral trace pitting edema to lower extremities. No clubbing or cyanosis. Positive for brisk cap refill. NEUROLOGIC: Positive for some mild disorientation, but otherwise calm. Positive for generalized weakness, but no focal deficits. Cranial nerves II through XII are grossly intact. Unable to assess gait due to her right ankle fracture. LABORATORY DATA AND IMAGING: CBC with white blood cell count of 7.8, hemoglobin 12.4, hematocrit 39.6, platelet count 189. She had a normal differential. Chemistry panel with sodium of 143, potassium 3.9, chloride 100, bicarbonate 32, BUN 25, creatinine 0.82, glucose is 84, total bilirubin 1.0, AST 35, ALT 24, alkaline phosphatase 95, albumin is 2.8, lactic acid is 1.4. Chest x-ray indicates cardiomegaly with bilateral vascular congestion and increased linear and interstitial markings, stable from 08/05/2016, no significant new processes, these are chronic for her. 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 No confluent pneumonia. Her EKG shows a rate about 115 with atrial fibrillation with rapid ventricular response. Records from outside hospital done on 05/02/2017, indicated minimally displaced bimalleolar fracture of the right ankle with no overt disruption of the ankle mortise, positive for ankle joint arthrosis. ASSESSMENT: 1. Altered mental status. 2. Urinary tract infection. 3. Chronic atrial fibrillation 4. Acute on chronic congestive heart failure. 5. Right bimalleolar non-displaced fracture. 6. Chronic obstructive pulmonary disease. 7. Intertrigo. 8. Generalized weakness and deconditioning. 9. Anxiety and depression. 10. Hypertension. 11. Hypoalbuminemia. PLAN: The patient will be admitted to the medical/surgical floor and continued on IV gentamicin for her urinary tract infection. Urine culture and blood cultures are currently pending. We have discontinued IV fluids this morning due to the evidence of mild volume overload on her chest x-ray as well as generalized edema on exam. We will give Lasix as needed for this. For her atrial fibrillation, she is currently not rate controlled. She missed her evening dose of Cartia and we will be giving it this morning now to see if we can get her rate under a little bit better control. If rate continues to be elevated, we can change her Coreg, home dose to b.i.d. I suspect that her altered mental status on presentation is secondary to her urinary tract infection. She does seem to be mildly improved this morning, but will need to discuss with the family what her usual baseline is to fully determine where she is at for mentation status. Patient has a known right ankle fracture sustained on 05/02/17. We will need to arrange outpatient orthopedic follow up prior to discharge. She will continue as non weight bearing on this side for now. The patient has a history of chronic obstructive pulmonary disease. She is not currently on any inhalers. We will order DuoNeb p.r.n. given her wheezing on exam today. Nystatin has been ordered for her intertrigo that was noted on exam. We will continue her home blood pressure and anxiety, depression medications. Deep venous thrombosis prophylaxis has been ordered with Lovenox 40 mg once daily. Her code status is out of hospital DNR per patient and family wishes. DISPOSITION: The patient with a somewhat guarded prognosis given her age and multiple comorbidities. Anticipate that she will need greater than 2 midnight stay as well as possible skilled physical therapy once she has stabilized medically pending clinical improvement. [facility]
[2017-05-06] MEDS: Aspirin 81 mg Enteric Coated Tablet PO SCH (16:59)
[2017-05-07] MEDS: Enoxaparin Sodium 40 MG/0.4 ML SYRINGE SC SCH (06:21)
[2017-05-07] MEDS: GENTAMICIN SULFATE IVPB SCH ×3 (06:22→13:38)
[2017-05-07 06:55] LABS: #Basophils 0.1 thou/uL (0.0-0.2); #Eosinphils 0.1 thou/uL (0.0-0.7); #Lymphocytes 2.2 thou/uL (1.20-3.40); #Monocytes 0.8 thou/uL (0.11-0.59); #Neutrophils 5.5 thou/uL (1.40-6.50); %Basophils 0.7 % (0.0-1.0); %Eosinophils 0.7 % (0.0-10.0); %Lymphocytes 25.2 % (21.0-51.0); %Monocytes 9.4 % (0.0-10.0); Hemoglobin 12.3 g/dL (12.0-16.0); Mean Corpuscular HGB CONC 31.1 g/dL (32.0-36.0); Mean Corpuscular Hemoglobin 28.5 pg (27.0-31.0); Mean Corpuscular Volume 91.8 fl (81.0-99.0); Mean Platelet Volume 8.4 fL (7.4-10.4); Platelet Count 202 thou/uL (130-400); RBC Distribution Width 14.6 % (11.5-14.5); White Blood Cell (WBC) Count 8.6 thou/uL (4.8-10.8)
[2017-05-07] MEDS: HYDROcodone/Acetaminophen 10/325 mg Tablet PO PRN ×2 (07:04→12:48)
[2017-05-07 07:07] LABS: Anion Gap 15 mmol/L (10-20); BUN (Urea Nitrogen) 27 mg/dL (9.8-20.1); Calc. Creatinine Clearance 47 mL/min (70-130); Calcium 8.6 mg/dL (7.8-10.44); Carbon Dioxide 26 mmol/L (23-31); Chloride 106 mmol/L (98-107); Estimated GFR-MDRD 40; Glucose 86 mg/dL (83-110); Potassium 3.8 mmol/L (3.5-5.1); Sodium 143 mmol/L (136-145)
[2017-05-07] MEDS: Pregabalin 50 MG CAP PO SCH ×2 (08:12→21:07)
[2017-05-07] MEDS: Nystatin Cream 15 GM TUBE TOP SCH (08:12)
[2017-05-07] MEDS: Carvedilol 6.25 MG TAB PO SCH (08:12)
[2017-05-07] MEDS: Pantoprazole 40 MG VIAL IVP SCH (08:13)
--- NOTE | 2017-05-07 13:03 | RAD ---
RADIOGRAPH RIGHT ANKLE THREE VIEWS: DATE: 05/07/2017 TIME: 9:01 a.m. HISTORY: An 86-year-old female with acute traumatic right ankle fracture. COMPARISON: No prior recent right ankle radiographs are available. FINDINGS: The ankle is in a splint. There is a spiral fracture of the distal fibular metadiaphysis, with late ral angulation of the distal fragment and approximately to bone width posterolateral displac ement of the distal fragment. The distal lateral malleolus still articulates with the lateral aspec t of the talus. There is a transversely oriented fracture at the superior aspect of the medial mall eolus, with one full bone width medial displacement of the distal fragment, such that the medial mal leolus still articulates with the talus. The talus is subluxed laterally relative to the tibial blanquita fond, by approximately 30% to 40% bone width, as seen on the oblique view, and is anulated laterally relative to the tibial plafond. The talar dome is maintained. No grossly displaced posterior mall eolar fracture is identified, but a mildly displaced or nondisplaced posterior malleolar fracture co uld be obscured by the splint, which obscures fine bony detail. IMPRESSION: Acute, traumatic, displaced bimalleolar fracture-subluxation of the ankle: Displaced and angulated W grace type C distal fibular fracture, completely displaced medial malleolar fracture, and severe subl uxation of the tibiotalar joint. POS: [facility]
[2017-05-07] MEDS: Aspirin 81 mg Enteric Coated Tablet PO SCH (17:05)
[2017-05-08] MEDS: GENTAMICIN SULFATE IVPB SCH (05:03)
[2017-05-08] MEDS: Enoxaparin Sodium 40 MG/0.4 ML SYRINGE SC SCH (05:04)
[2017-05-08] MEDS: Nystatin Cream 15 GM TUBE TOP SCH ×3 (05:05→20:37)
[2017-05-08] MEDS: Docusate 100 MG CAP PO SCH ×2 (08:50→20:33)
[2017-05-08] MEDS: Sulfameth/Trimethoprim DS 800-160mg TAB PO SCH ×2 (08:50→20:34)
[2017-05-08] MEDS: Pregabalin 50 MG CAP PO SCH ×2 (08:50→20:35)
[2017-05-08] MEDS: Carvedilol 6.25 MG TAB PO SCH (08:52)
[2017-05-08] MEDS: HYDROcodone/Acetaminophen 10/325 mg Tablet PO PRN ×3 (08:52→19:21)
[2017-05-08] MEDS: Pantoprazole 40 MG VIAL IVP SCH (08:53)
[2017-05-08] MEDS ORDERED: Bisacodyl 5 MG TAB PO PRN (09:19)
--- NOTE | 2017-05-08 10:28 | RAD ---
PORTABLE CHEST: HISTORY: Shortness of breath. Cough. COMPARISON: 05/05/17. FINDINGS: Heart is mildly enlarged. There is evidence of vascular and interstitial congestion suggesting inte rstitial and early alveolar edema throughout both lungs. Evidence of small bilateral effusions. Le ft basilar atelectasis. IMPRESSION: Evidence of congestive changes with edema. POS: [facility]
[2017-05-08] MEDS ORDERED: Sodium Chloride 0.9% 1,000 ML BAG ONE (10:48)
[2017-05-08] MEDS ORDERED: Furosemide 40 MG TAB PO SCH (16:30)
[2017-05-08] MEDS: Aspirin 81 mg Enteric Coated Tablet PO SCH (17:11)
[2017-05-09] MEDS: Docusate 100 MG CAP PO SCH ×2 (08:24→20:36)
[2017-05-09] MEDS: Pregabalin 50 MG CAP PO SCH ×2 (08:30→20:36)
[2017-05-09] MEDS: Sulfameth/Trimethoprim DS 800-160mg TAB PO SCH ×2 (08:31→20:36)
[2017-05-09] MEDS: Carvedilol 6.25 MG TAB PO SCH (08:31)
[2017-05-09] MEDS: HYDROcodone/Acetaminophen 10/325 mg Tablet PO PRN (08:38)
[2017-05-09] MEDS ORDERED: Enoxaparin Sodium 40 MG/0.4 ML SYRINGE SC SCH (09:00)
[2017-05-09] MEDS: Nystatin Cream 15 GM TUBE TOP SCH ×2 (14:48→20:37)
[2017-05-09] MEDS: Aspirin 81 mg Enteric Coated Tablet PO SCH (17:50)
[2017-05-10] MEDS: HYDROcodone/Acetaminophen 10/325 mg Tablet PO PRN (01:49)
[2017-05-10 04:39] VITALS: BP 136/71; TEMP 99.5
--- NOTE | 2017-05-10 06:30 | DIS ---
DATE OF ADMISSION: 05/06/2017 DATE OF DISCHARGE: 05/09/2017 FINAL DIAGNOSES: 1. Altered mental status. 2. Urinary tract infection. 3. Right ankle fracture. 4. Atrial fibrillation with rapid ventricular response. 5. Chronic obstructive pulmonary disease. 6. Physical deconditioning and gait immobility. 7. Anxiety and depression. 8. Chronic pain and neuropathy. 9. Hypertension. HOSPITAL COURSE: This is a pleasant 86-year-old female with history of the above-mentioned medical problems that presented to the ER with her daughter on late Monday night with complaint of confusion and altered mental status. The daughter reported at that time that the patient had been at [facility] on 05/03/2017, after a fall and was found to have a right nondisplaced bimalleolar fracture. The patient was discharged home and told to follow up with Orthopedic Surgery, but unfortunately the daughter was unable to get her into either her primary care physician or orthopedic surgeon. She ended up bring her into the ER here at [facility] late Monday night mainly due to the confusion. In the ER, she was found to have a significant urinary tract infection with urine culture eventually resulting as Proteus mirabilis greater than 100,000 colony forming units. The patient was admitted to the medical floor and started on IV fluids and IV antibiotics with gentamicin. Upon evaluating her Monday morning, she was found to be mildly volume overloaded with crackles in her bases and generalized edema, so the IV fluids were stopped. She was continued on IV antibiotics for urinary tract infection. She was also noted to be tachycardic and in atrial fibrillation, which is chronic for her. She had missed her evening dose of Cardizem and patient was started back on her home medicines for her chronic atrial fibrillation and her heart rate normalized. Upon evaluating the right lower extremity fracture, her right ankle was noted to be deformed and grossly swollen. Repeat x-ray was ordered on Monday and found to have significant change from her original x-ray 4 days prior. X-ray on 05/07/2017, indicated acute traumatic displaced bimalleolar fracture with subluxation of the ankle and displaced and angulated Rojas type C distal fibular fracture as well as completely displaced medial malleolar fracture and severe subluxation of the tibiotalar joint. In discussion with the daughter, she did state that in between her ER visit on Monday and coming here on Monday, she had difficulty transferring the patient and the patient was actually bearing weight on the ankle. Surprisingly, the patient's pain has been relatively easy to control with her home pain medications while she has been here. On-call orthopedic surgeon, Dr. Ponce was notified who recommended aggressive icing and elevation for 2 days in order to prepare the patient for planned surgical repair on , 05/11/2017. By hospital day 2 , the patient's mentation was back to her baseline. She was able to be switched to oral Bactrim, which her culture showed to be sensitive to and will be planned to be continued on the Bactrim for a total of 7 days of antibiotics, finishing on Monday. Arrangements have been made for the patient to be transferred from our acute inpatient unit to the acute inpatient unit at [facility] in [place] under the care Dr. Ponce, so that she can arrange for surgical repair of her displaced traumatic right ankle fracture. Of note, Dr. Ponce was notified that the patient has baseline cardiac history with her chronic atrial fibrillation. The family does report that her children's minister is Dr. Flores and Dr. Flores or whomever the on-call children's minister there will need to be notified upon arrival tomorrow so that she can have preoperative clearance prior to her surgery on . All of these findings as well as the plan of care has been endorsed to the daughter, Ramses Bear, who is her power of criminal attorney, and who is in agreement with the plan of care. Anticipate the patient needing a skilled rehabilitation stay postoperatively and this has been discussed with the family as well. By day of discharge, the patient's altered mental status as well as any signs of acute infection had completely resolved. She has been eating and drinking without difficulty and her pain has been well controlled with the hydrocodone as needed. MEDICATIONS ON TRANSFER: 1. Alprazolam 0.5 mg nightly as needed for anxiety. 2. Dulcolax 10 mg daily as needed for constipation. 3. Carvedilol 6.25 mg once daily in the morning. 4. Diltiazem controlled release 120 mg once daily in the evening. 5. Colace 100 mg twice daily. 6. Lovenox 40 mg once daily. 7. Hydrocodone 10/325 mg every 4 hours as needed for pain. 8. DuoNeb 3 mL nebulized every 4 hours as needed. 9. Lantiseptic topical ointment as needed for skin protection. 10. Nystatin topical ointment twice daily to affected areas. 11. Protonix 40 mg once daily. 12. Lyrica 100 mg twice daily. 13. Phenergan 25 mg every 6 hours as needed for nausea. 14. Sertraline 50 mg once daily in the morning. 15. Bactrim 1 tab twice daily for 2 additional days ending on Monday for a total of 7 days of antibiotic treatment including the initial gentamicin. DIET: Regular diet. ACTIVITIES: She is nonweightbearing to her right lower extremity. She has a Howard catheter in place due to ongoing candidal infection in her intertriginous area and limited immobility. FOLLOWUP: The patient will be transferred to be under the care of Dr. Ponce , orthopedic surgeon as well as Dr. Flores her covering children's minister for her cardiac care with anticipated surgery on 05/11/2017 and will follow up with her primary care physician, Dr. Maravilla upon discharge from [facility]. STIVEN
== END 2017-05-10 05:03 | disposition short-term general hospital (02) | DRG 562 ==
LOC: MADERS 20:39 → UNDOADMIN 05-06 00:06 → MADMS 05-06 00:06
PROVIDERS: ADMIT Family Medicine; ATTEND Family Medicine
DX: S82.844A Nondisplaced bimalleolar fracture of right lower leg, initial encounter for closed fracture (principal); I50.33 Acute on chronic diastolic (congestive) heart failure; J96.11 Chronic respiratory failure with hypoxia; N39.0 Urinary tract infection, site not specified; I48.2 Chronic atrial fibrillation; J44.9 Chronic obstructive pulmonary disease, unspecified; Z99.81 Dependence on supplemental oxygen; E88.09 Other disorders of plasma-protein metabolism, not elsewhere classified; G62.9 Polyneuropathy, unspecified; F32.9 Major depressive disorder, single episode, unspecified; B96.4 Proteus (mirabilis) (morganii) as the cause of diseases classified elsewhere; R41.82 Altered mental status, unspecified; I11.0 Hypertensive heart disease with heart failure; F41.9 Anxiety disorder, unspecified; G89.29 Other chronic pain; M54.9 Dorsalgia, unspecified; Z91.81 History of falling; W19.XXXA Unspecified fall, initial encounter; K21.9 Gastro-esophageal reflux disease without esophagitis; Z90.5 Acquired absence of kidney; Z96.643 Presence of artificial hip joint, bilateral; Z95.828 Presence of other vascular implants and grafts; Z96.89 Presence of other specified functional implants; Z88.5 Allergy status to narcotic agent; Z88.1 Allergy status to other antibiotic agents; Z91.040 Latex allergy status; Z66 Do not resuscitate; L30.4 Erythema intertrigo
CPT/HCPCS: 36415; 51701; 71010; 80048; 80053; 81001; 82150; 83605; 83690; 85007; 85025; 85027; 87040; 87077; 87086; 87186; 93005; 94640; 96365; 96372; 96375; A4216; A4353; C9113; J1580; J1642; J1644; J1650; J1885; J2270; J7050; J7620

== ENCOUNTER 2017-05-18 19:15 | Inpatient (IN) | payer MEDICARE, MEDICAID ==
[2017-05-18] MEDS: Nystatin Cream 15 GM TUBE TOP SCH (22:11)
[2017-05-18] MEDS: Docusate 100 MG CAP PO SCH (22:12)
[2017-05-19] MEDS: Ondansetron ODT 4 MG TAB PO PRN ×2 (02:18→07:27)
[2017-05-19] MEDS: HYDROcodone/Acetaminophen 10/325 mg Tablet PO PRN ×4 (04:32→21:17)
[2017-05-19 08:32] LABS: Bilirubin Negative (Negative); Blood, Urine Moderate (Negative); Clarity Clear (Clear); Glucose, Urine (Dipstick) 100 mg/dL (Negative); Leukocyte Trace (Negative); Nitrite Negative (Negative); Protein, Urine (Dipstick) 100 mg/dL (Neg-Trace); Specific Gravity, Urine 1.015 (1.005-1.030); Urobilinogen 0.2 mg/dL (0.2-1.0); pH, Urine 6.5 (5.0-9.0)
[2017-05-19 08:34] LABS: RBC/HPF 0-3 HPF (0-3)
[2017-05-19 08:36] LABS: Bacteria/HPF 2+ HPF (None Seen); Yeast-All Forms 1+ HPF (None Seen)
[2017-05-19] MEDS: Docusate 100 MG CAP PO SCH ×2 (08:47→20:11)
[2017-05-19] MEDS: Nystatin Cream 15 GM TUBE TOP SCH ×2 (08:52→20:18)
[2017-05-19] MEDS: Carvedilol 3.125 MG TAB PO SCH (08:52)
--- NOTE | 2017-05-19 11:05 | HP ---
DATE OF ADMISSION: 05/19/2017 CHIEF COMPLAINT: Transfer from [facility] for admission to swing bed for PT, OT, status post right ankle open reduction and internal fixation. HISTORY OF PRESENT ILLNESS: This is a pleasant 86-year-old female with history of chronic diastolic heart failure, chronic atrial fibrillation, hypertension, anxiety and depression, chronic intractable pain, COPD, and deconditioning that is seen this morning for admission to [facility] for planned physical therapy and occupational therapy, status post open reduction and internal fixation of her right ankle that was performed on 2016, by Dr. Ziyad Salmeron. The patient was previously at [facility] for urinary tract infection upon when she was found to have a severely displaced right ankle fracture and was transferred to [facility] on 05/10/2017. Her hospitalization in [place] was complicated by acute on chronic renal failure as well as volume overload and acute on chronic diastolic heart failure. Dr. Pop with the Cardiology team was consulted who initially diuresed her with Lasix which she responded well to. Unfortunately, because of the aggressive diuresis that she has suffered some acute on chronic renal failure with creatinine increasing to 2.56 as of yesterday. Research Test Engine Operator was also consulted, given her respiratory difficulties and chronic O2 dependence. She was placed on prednisone at one point for her COPD, which she responded well to. Dr. Pop also worked during her hospitalization to get her chronic atrial fibrillation under control with adjusting her chronic diltiazem to 180 mg up from 120 mg and kept her on her home Coreg dose. Postoperatively, the patient has done quite well. She is 4 days postop from her surgery and has a hard cast to her right lower extremity. She is nonweightbearing on that side and is here today to continue physical therapy and occupational therapy in her postoperative care. The patient this morning has no complaints. There is no family at bedside, but she states her pain is well controlled and she denies any chest pain, shortness of breath, or abdominal pain. She is complaining of some mild nausea this morning as well as continued issues with urinating in the bed burch. Howard was placed earlier this morning by nursing and she had about 400 mL good output since then. PAST MEDICAL HISTORY: 1. Right displaced ankle fracture status post open reduction and internal fixation on 05/15/2017. 2. Acute on chronic renal failure. 3. Chronic diastolic heart failure. 4. Chronic atrial fibrillation. 5. Hypertension. 6. Anxiety and depression. 7. Restless leg syndrome. 8. Chronic obstructive pulmonary disease with chronic O2 per nasal cannula 24 hours a day. 9. Chronic insomnia. PAST SURGICAL HISTORY: 1. Open reduction and internal fixation of right ankle on 05/15/2017. 2. Right nephrectomy. 3. Hip replacement x2. 4. Cholecystectomy. 5. IVC filter placement. 6. Bilateral total hip replacement. 7. Dorsal column stimulator for chronic low back pain. FAMILY HISTORY: Noncontributory. ALLERGIES: The patient is allergic to ROCEPHIN, MORPHINE, CIPROFLOXACIN, CODEINE, and LATEX. SOCIAL HISTORY: The patient was previously living at home with her daughter with no history of alcohol, drugs or tobacco use. She has an out of hospital DNR and her daughterRamses is her decision maker and medical power of deputy attorney general. MEDICATIONS: Discharge medications include: 1. Zoloft 50 mg daily. 2. Xanax 0.5 mg at bedtime as needed. 3. Diltiazem 180 mg every evening. 4. Aspirin 81 mg once daily. 5. Acetaminophen 650 mg every 4 hours as needed. 6. DuoNebs 3 mL per nebulizer every 6 hours as needed. 7. Zofran 4 mg every 6 hours as needed. 8. Zolpidem 5 mg at bedtime as needed. 9. Dulcolax 10 mg daily as needed. 10. Docusate 100 mg twice daily. 11. Hydrocodone 10/325 mg every 4 hours as needed. 12. Nystatin topical ointment b.i.d. as needed. 13. Pantoprazole 40 mg daily. 14. Coreg 3.125 mg once daily. REVIEW OF SYSTEMS: GENERAL: The patient reports chronic weakness, but denies any weight gain or weight loss, fever or chills. HEENT: She denies any headache, blurry vision, sore throat, runny nose, or ear pain. CARDIOVASCULAR: She denies any chest pain, chest pressure or palpitations. RESPIRATORY: Positive for chronic cough and chronic dyspnea. Denies any difficulty breathing. GASTROINTESTINAL: Abdomen is positive for mild nausea. Denies any vomiting, constipation, diarrhea, or abdominal pain. GENITOURINARY: Positive for difficulty urinating and urinary retention. Denies any dysuria. MUSCULOSKELETAL: Positive for chronic arthralgias, difficulty walking and generalized weakness. NEUROLOGIC: Denies any seizures or syncope. HEMATOLOGIC: Denies any easy bruising or easy bleeding. PHYSICAL EXAMINATION: VITAL SIGNS: Temperature is 96.0, blood pressure is 127/81, heart rate is 71, respirations 16, and O2 saturation is 97% on 2 liters. GENERAL: She is alert and oriented x3. She is in no apparent distress. She is calm and cooperative. HEENT: Pupils are equally round and reactive to light. Extraocular movements are intact. Sclerae are nonicteric. Conjunctivae are non-hyperemic. Oropharynx is mildly dry with poor dentition. NECK: Supple, without thyromegaly, lymphadenopathy or carotid bruits. CARDIOVASCULAR: Regular rate and rhythm. RESPIRATORY: Positive for chronic crackles at bilateral bases with a productive cough, no diminished aeration, no respiratory distress. GASTROINTESTINAL: Abdomen is soft, nontender, nondistended with normoactive bowel sounds. GENITOURINARY: Positive for intertrigo in her perineal area. She has a Howard catheter in place. EXTREMITIES: Positive for hard cast to her right ankle up to the knee. She is able to move her toes with brisk cap refill. Negative for any edema to her lower extremities. She is moving all 4 extremities. NEUROLOGIC: Generalized weakness, but no focal deficits. Cranial nerves II through XII are grossly intact. She is nonweightbearing. LABORATORY DATA AND IMAGING: BMP on 05/18/2017 with sodium of 137, potassium is 3.7, chloride 96, bicarbonate 30, BUN 63, and creatinine 2.56. GFR is 18. Her glucose is 121. No new labs as of this morning. Last x-ray of her right ankle with on 2016 which showed acute traumatic displaced bimalleolar fracture with subluxation of the ankle with a displaced and angulated Rojas type C distal fibular fracture, completely displaced medial malleolar fracture and severe subluxation of the tibiotalar joint. ASSESSMENT AND PLAN: 1. Status post right ankle fracture with open reduction and internal fixation on 05/15/2017. 2. Acute on chronic renal failure. 3. Chronic diastolic heart failure. 4. Chronic atrial fibrillation. 5. Hypertension. 6. Chronic gait immobility and physical deconditioning. 7. Chronic anxiety, depression, and insomnia. 8. Chronic obstructive pulmonary disease on home oxygen. PLAN: The patient will be admitted to [facility] for planned physical therapy and occupational therapy s/p recent severely displaced right ankle fracture requiring open reduction and internal fixation. She is postop day #4 with postoperative course that has been complicated by acute on chronic renal failure and respiratory difficulties due to her chronic heart failure and COPD. The patient is stable at this time, but per documentation when she was in [place], her overall prognosis is guarded to poor, given her chronic comorbidities and overall deconditioning. Palliative care was consulted while she was in the hospital and she is being continued on palliative measures per the family. She has an OOHDNR signed. The patient may require long term placement pending clinical improvement. The patient will be continued on her home medicines for her chronic atrial fibrillation, heart failure, hypertension , anxiety and insomnia. She was noted to have acute on chronic renal failure prior to transfer with creatinine 2.5 yesterday. This was deemed likely prerenal azotemia secondary to over diuresis. We will continue to encourage p.o. intake and check a BMP on Monday. Per the last note from the hospital as she may require p.r.n. and IV boluses to help with her renal function given her poor appetite and poor p.o. intake and tenuous kidney function. The patient has SCDs for DVT prophylaxis. Her code status is DNR. Anticipate prolonged stay while we arrange discharge planning as well as manage her chronic comorbidities while she is getting physical therapy and occupational therapy for her right ankle fracture. MARIAMD
[2017-05-19 16:22] LABS: Bilirubin Negative (Negative); Blood, Urine Moderate (Negative); Clarity Slightly Cloudy (Clear); Glucose, Urine (Dipstick) 100 mg/dL (Negative); Leukocyte Small (Negative); Nitrite Negative (Negative); Protein, Urine (Dipstick) 100 mg/dL (Neg-Trace); Urobilinogen 0.2 mg/dL (0.2-1.0); pH, Urine 6.5 (5.0-9.0)
[2017-05-19 16:23] LABS: Bacteria/HPF 3+ HPF (None Seen); Squamous Epithelial 0-3 HPF (0-3); WBC/HPF 21-50 HPF (0-3); Yeast-All Forms 1+ HPF (None Seen)
[2017-05-19] MEDS: Acetaminophen 325 MG TAB PO PRN (17:27)
[2017-05-19] MEDS: Sulfameth/Trimethoprim DS 800-160mg TAB PO SCH (20:12)
[2017-05-19] MEDS: ALPRAZolam 0.5 MG TAB PO PRN (21:17)
[2017-05-20] MEDS: HYDROcodone/Acetaminophen 10/325 mg Tablet PO PRN ×3 (08:36→17:56)
[2017-05-20] MEDS: Nystatin Cream 15 GM TUBE TOP SCH ×2 (08:37→20:11)
[2017-05-20] MEDS: Docusate 100 MG CAP PO SCH ×2 (08:37→20:10)
[2017-05-20] MEDS: Sulfameth/Trimethoprim DS 800-160mg TAB PO SCH ×2 (08:37→20:11)
[2017-05-20] MEDS: Carvedilol 3.125 MG TAB PO SCH (08:38)
[2017-05-20] MEDS: Ondansetron ODT 4 MG TAB PO PRN ×2 (12:44→17:56)
[2017-05-20] MEDS: ALPRAZolam 0.5 MG TAB PO PRN (20:05)
[2017-05-20] MEDS: Zolpidem Tartrate 5 MG TAB PO PRN (20:06)
[2017-05-21] MEDS: Nystatin Cream 15 GM TUBE TOP SCH ×2 (08:53→20:14)
[2017-05-21] MEDS: Sulfameth/Trimethoprim DS 800-160mg TAB PO SCH ×2 (08:53→20:13)
[2017-05-21] MEDS: Docusate 100 MG CAP PO SCH ×2 (08:53→20:13)
[2017-05-21] MEDS: Carvedilol 3.125 MG TAB PO SCH (08:53)
[2017-05-21] MEDS: Ondansetron ODT 4 MG TAB PO PRN (12:54)
[2017-05-21] MEDS: HYDROcodone/Acetaminophen 10/325 mg Tablet PO PRN ×2 (15:59→21:50)
[2017-05-21] MEDS: Zolpidem Tartrate 5 MG TAB PO PRN (21:51)
[2017-05-22] MEDS: HYDROcodone/Acetaminophen 10/325 mg Tablet PO PRN ×4 (02:52→18:05)
[2017-05-22] MEDS: Carvedilol 3.125 MG TAB PO SCH (08:21)
[2017-05-22] MEDS: Docusate 100 MG CAP PO SCH ×2 (08:21→20:52)
[2017-05-22] MEDS: Nystatin Cream 15 GM TUBE TOP SCH ×2 (08:22→20:54)
[2017-05-22] MEDS: Sulfameth/Trimethoprim DS 800-160mg TAB PO SCH (08:22)
[2017-05-22] MEDS ORDERED: Fluconazole 100 MG TAB PO SCH (08:30)
[2017-05-22 09:20] LABS: #Basophils 0.1 thou/uL (0.0-0.2); #Eosinphils 0.1 thou/uL (0.0-0.7); #Lymphocytes 1.8 thou/uL (1.20-3.40); #Monocytes 0.9 thou/uL (0.11-0.59); #Neutrophils 11.4 thou/uL (1.40-6.50); %Basophils 0.7 % (0.0-1.0); %Eosinophils 0.6 % (0.0-10.0); %Lymphocytes 12.3 % (21.0-51.0); %Monocytes 6.6 % (0.0-10.0); %Neutrophils 79.9 % (42.0-75.0); Hemoglobin 13.3 g/dL (12.0-16.0); Mean Corpuscular HGB CONC 30.5 g/dL (32.0-36.0); Mean Corpuscular Volume 88.5 fl (81.0-99.0); Mean Platelet Volume 9.8 fL (7.4-10.4); Platelet Count 251 thou/uL (130-400); RBC Distribution Width 14.5 % (11.5-14.5); Red Blood Cell (RBC) Count 4.94 mill/uL (4.20-5.40); White Blood Cell (WBC) Count 14.3 thou/uL (4.8-10.8)
[2017-05-22 09:48] LABS: Anion Gap 12 mmol/L (10-20); BUN (Urea Nitrogen) 62 mg/dL (9.8-20.1); Calc. Creatinine Clearance 18 mL/min (70-130); Calcium 8.4 mg/dL (7.8-10.44); Carbon Dioxide 31 mmol/L (23-31); Chloride 101 mmol/L (98-107); Estimated GFR-MDRD 14; Glucose 125 mg/dL (83-110); Sodium 140 mmol/L (136-145)
[2017-05-22] MEDS: Polyethylene Glycol 3350 17 GM Packet PO PRN (20:52)
[2017-05-22] MEDS: Ondansetron ODT 4 MG TAB PO PRN (22:13)
[2017-05-23] MEDS: HYDROcodone/Acetaminophen 10/325 mg Tablet PO PRN ×3 (01:54→16:58)
[2017-05-23] MEDS ORDERED: Fleet Enema 133 ML BOT FS SCH ×2 (07:30→08:30)
[2017-05-23] MEDS: Ondansetron ODT 4 MG TAB PO PRN ×3 (07:38→21:24)
[2017-05-23] MEDS: Polyethylene Glycol 3350 17 GM Packet PO PRN (07:51)
[2017-05-23] MEDS: Carvedilol 3.125 MG TAB PO SCH (08:13)
[2017-05-23] MEDS: Nystatin Cream 15 GM TUBE TOP SCH ×2 (08:14→20:40)
[2017-05-23] MEDS: Docusate 100 MG CAP PO SCH ×2 (08:14→20:39)
[2017-05-23] MEDS ORDERED: Fleet Enema 133 ML BOT FS PRN (11:15)
[2017-05-23] MEDS: Bisacodyl 10 MG SUPP PR PRN (11:30)
[2017-05-23] MEDS: Acetaminophen 325 MG TAB PO PRN (11:44)
[2017-05-23] MEDS: ALPRAZolam 0.5 MG TAB PO PRN (23:50)
[2017-05-24] MEDS ORDERED: Fleet Enema 133 ML BOT FS PRN (06:00)
[2017-05-24] MEDS: HYDROcodone/Acetaminophen 10/325 mg Tablet PO PRN ×3 (06:24→19:35)
[2017-05-24] MEDS: Polyethylene Glycol 3350 17 GM Packet PO PRN ×2 (08:10→19:36)
[2017-05-24] MEDS: Carvedilol 3.125 MG TAB PO SCH (08:10)
[2017-05-24] MEDS: Nystatin Cream 15 GM TUBE TOP SCH ×2 (08:11→20:49)
[2017-05-24] MEDS: Docusate 100 MG CAP PO SCH ×2 (08:11→20:46)
[2017-05-24] MEDS: ALPRAZolam 0.5 MG TAB PO PRN (20:45)
[2017-05-25] MEDS: Nystatin Cream 15 GM TUBE TOP SCH ×2 (08:46→20:26)
[2017-05-25] MEDS: Carvedilol 3.125 MG TAB PO SCH (08:46)
[2017-05-25] MEDS: Docusate 100 MG CAP PO SCH ×2 (08:46→20:26)
[2017-05-25] MEDS: ALPRAZolam 0.5 MG TAB PO PRN (20:25)
[2017-05-25] MEDS: HYDROcodone/Acetaminophen 10/325 mg Tablet PO PRN (20:30)
[2017-05-26] MEDS: Docusate 100 MG CAP PO SCH ×2 (09:10→20:33)
[2017-05-26] MEDS: Carvedilol 3.125 MG TAB PO SCH (09:10)
[2017-05-26] MEDS: Nystatin Cream 15 GM TUBE TOP SCH ×2 (09:11→20:33)
[2017-05-26] MEDS: Acetaminophen 325 MG TAB PO PRN (09:15)
[2017-05-26] MEDS: HYDROcodone/Acetaminophen 10/325 mg Tablet PO PRN (13:13)
[2017-05-26] MEDS: ALPRAZolam 0.5 MG TAB PO PRN (20:33)
[2017-05-26] MEDS: Ondansetron ODT 4 MG TAB PO PRN (23:12)
[2017-05-27] MEDS: Carvedilol 3.125 MG TAB PO SCH (09:08)
[2017-05-27] MEDS: Nystatin Cream 15 GM TUBE TOP SCH ×2 (09:08→20:41)
[2017-05-27] MEDS: Docusate 100 MG CAP PO SCH ×2 (09:08→20:40)
[2017-05-27] MEDS: HYDROcodone/Acetaminophen 10/325 mg Tablet PO PRN ×2 (14:17→20:53)
[2017-05-27] MEDS: ALPRAZolam 0.5 MG TAB PO PRN (20:52)
[2017-05-28] MEDS: Nystatin Cream 15 GM TUBE TOP SCH ×2 (08:43→21:09)
[2017-05-28] MEDS: Carvedilol 3.125 MG TAB PO SCH (08:43)
[2017-05-28] MEDS: Docusate 100 MG CAP PO SCH ×2 (08:43→21:09)
[2017-05-28] MEDS: Acetaminophen 325 MG TAB PO PRN (08:58)
[2017-05-28] MEDS: HYDROcodone/Acetaminophen 10/325 mg Tablet PO PRN (11:49)
[2017-05-29] MEDS: HYDROcodone/Acetaminophen 10/325 mg Tablet PO PRN ×3 (08:00→21:43)
[2017-05-29] MEDS: Carvedilol 3.125 MG TAB PO SCH (08:01)
[2017-05-29] MEDS: Docusate 100 MG CAP PO SCH ×2 (08:01→21:44)
[2017-05-29] MEDS: Nystatin Cream 15 GM TUBE TOP SCH ×2 (08:02→21:45)
[2017-05-29] MEDS ORDERED: FLU VACC TS2017-18 (>65YR) 0.5 ML SYRINGE IM ONE (21:00)
[2017-05-29] MEDS: ALPRAZolam 0.5 MG TAB PO PRN (21:44)
[2017-05-30] MEDS: HYDROcodone/Acetaminophen 10/325 mg Tablet PO PRN ×2 (09:10→19:45)
[2017-05-30] MEDS: Nystatin Cream 15 GM TUBE TOP SCH ×2 (09:11→19:46)
[2017-05-30] MEDS: Docusate 100 MG CAP PO SCH ×2 (09:11→19:44)
[2017-05-30] MEDS: Carvedilol 3.125 MG TAB PO SCH (09:12)
[2017-05-30 19:05] LABS: #Basophils 0.1 thou/uL (0.0-0.2); #Eosinphils 0.1 thou/uL (0.0-0.7); #Lymphocytes 2.1 thou/uL (1.20-3.40); #Monocytes 0.7 thou/uL (0.11-0.59); %Basophils 0.9 % (0.0-1.0); %Eosinophils 0.7 % (0.0-10.0); %Monocytes 5.4 % (0.0-10.0); %Neutrophils 76.9 % (42.0-75.0); Hemoglobin 12.2 g/dL (12.0-16.0); Mean Corpuscular HGB CONC 30.7 g/dL (32.0-36.0); Mean Corpuscular Hemoglobin 27.6 pg (27.0-31.0); Mean Corpuscular Volume 90.1 fl (81.0-99.0); Mean Platelet Volume 7.4 fL (7.4-10.4); Platelet Count 287 thou/uL (130-400); RBC Distribution Width 15.1 % (11.5-14.5); Red Blood Cell (RBC) Count 4.42 mill/uL (4.20-5.40); White Blood Cell (WBC) Count 13.1 thou/uL (4.8-10.8)
[2017-05-30 19:22] LABS: ALT (SGPT) 7 U/L (8-55); AST (SGOT) 19 U/L (5-34); Albumin 2.3 g/dL (3.4-4.8); Alkaline Phosphatase 95 U/L (40-150); Anion Gap 17 mmol/L (10-20); BUN (Urea Nitrogen) 42 mg/dL (9.8-20.1); Bilirubin, Total 0.5 mg/dL (0.2-1.2); Calc. Creatinine Clearance 25 mL/min (70-130); Calcium 8.8 mg/dL (7.8-10.44); Carbon Dioxide 28 mmol/L (23-31); Chloride 99 mmol/L (98-107); Estimated GFR-MDRD 21; Globulin 4.5 g/dL (2.4-3.5); Glucose 184 mg/dL (83-110); Potassium 5.2 mmol/L (3.5-5.1); Protein, Total 6.8 g/dL (6.0-8.3); Sodium 139 mmol/L (136-145)
[2017-05-30] MEDS: ALPRAZolam 0.5 MG TAB PO PRN (19:44)
[2017-05-31] MEDS: Docusate 100 MG CAP PO SCH ×2 (08:46→20:05)
[2017-05-31] MEDS: Carvedilol 3.125 MG TAB PO SCH (08:46)
[2017-05-31] MEDS: Nystatin Cream 15 GM TUBE TOP SCH ×2 (08:47→20:06)
[2017-05-31] MEDS: HYDROcodone/Acetaminophen 10/325 mg Tablet PO PRN (20:06)
[2017-05-31] MEDS: ALPRAZolam 0.5 MG TAB PO PRN (20:07)
[2017-06-01] MEDS: Carvedilol 3.125 MG TAB PO SCH (09:37)
[2017-06-01] MEDS: Docusate 100 MG CAP PO SCH ×2 (09:37→21:04)
[2017-06-01] MEDS: Nystatin Cream 15 GM TUBE TOP SCH ×2 (09:38→21:05)
[2017-06-01] MEDS: HYDROcodone/Acetaminophen 10/325 mg Tablet PO PRN (19:24)
[2017-06-02] MEDS: Docusate 100 MG CAP PO SCH ×2 (08:52→20:39)
[2017-06-02] MEDS: Nystatin Cream 15 GM TUBE TOP SCH ×2 (08:53→20:38)
[2017-06-02] MEDS: Carvedilol 3.125 MG TAB PO SCH (08:53)
[2017-06-02] MEDS: Bisacodyl 5 MG TAB PO PRN (16:45)
[2017-06-02] MEDS: HYDROcodone/Acetaminophen 10/325 mg Tablet PO PRN ×2 (19:16→23:42)
[2017-06-02] MEDS: Zolpidem Tartrate 5 MG TAB PO PRN (20:37)
[2017-06-03] MEDS: Nystatin Cream 15 GM TUBE TOP SCH ×2 (08:30→20:35)
[2017-06-03] MEDS: Carvedilol 3.125 MG TAB PO SCH (08:30)
[2017-06-03] MEDS: Docusate 100 MG CAP PO SCH ×2 (08:30→20:34)
[2017-06-03] MEDS: HYDROcodone/Acetaminophen 10/325 mg Tablet PO PRN ×2 (10:31→15:25)
[2017-06-04] MEDS: HYDROcodone/Acetaminophen 10/325 mg Tablet PO PRN ×3 (01:09→18:48)
[2017-06-04] MEDS: ALPRAZolam 0.5 MG TAB PO PRN ×2 (01:10→20:07)
[2017-06-04] MEDS: Docusate 100 MG CAP PO SCH ×2 (08:33→20:08)
[2017-06-04] MEDS: Nystatin Cream 15 GM TUBE TOP SCH ×2 (08:33→20:10)
[2017-06-04] MEDS: Carvedilol 3.125 MG TAB PO SCH (08:33)
[2017-06-05] MEDS: Docusate 100 MG CAP PO SCH ×2 (09:08→21:07)
[2017-06-05] MEDS: Carvedilol 3.125 MG TAB PO SCH (09:08)
[2017-06-05] MEDS: Nystatin Cream 15 GM TUBE TOP SCH ×2 (09:09→21:07)
[2017-06-05] MEDS: HYDROcodone/Acetaminophen 10/325 mg Tablet PO PRN ×2 (09:11→14:13)
[2017-06-05] MEDS: ALPRAZolam 0.5 MG TAB PO PRN (21:13)
[2017-06-06 06:15] VITALS: BMI 29.5
[2017-06-06] MEDS: Docusate 100 MG CAP PO SCH ×2 (08:58→20:15)
[2017-06-06] MEDS: Nystatin Cream 15 GM TUBE TOP SCH ×2 (08:58→20:18)
[2017-06-06] MEDS: guaiFENesin ER 600 MG TAB PO SCH ×2 (08:58→20:15)
[2017-06-06] MEDS: Carvedilol 3.125 MG TAB PO SCH (08:58)
[2017-06-06 08:59] LABS: #Eosinphils 0.1 thou/uL (0.0-0.7); #Lymphocytes 1.3 thou/uL (1.20-3.40); #Monocytes 0.4 thou/uL (0.11-0.59); #Neutrophils 6.8 thou/uL (1.40-6.50); %Basophils 0.4 % (0.0-1.0); %Eosinophils 0.7 % (0.0-10.0); %Lymphocytes 15.1 % (21.0-51.0); %Neutrophils 78.7 % (42.0-75.0); Hemoglobin 12.2 g/dL (12.0-16.0); Mean Corpuscular HGB CONC 30.7 g/dL (32.0-36.0); Mean Corpuscular Hemoglobin 27.9 pg (27.0-31.0); Mean Corpuscular Volume 90.8 fl (81.0-99.0); Mean Platelet Volume 6.6 fL (7.4-10.4); Platelet Count 132 thou/uL (130-400); RBC Distribution Width 15.5 % (11.5-14.5); Red Blood Cell (RBC) Count 4.37 mill/uL (4.20-5.40); White Blood Cell (WBC) Count 8.6 thou/uL (4.8-10.8)
[2017-06-06] MEDS: HYDROcodone/Acetaminophen 10/325 mg Tablet PO PRN ×3 (10:13→21:54)
[2017-06-06 11:56] LABS: Anion Gap 15 mmol/L (10-20); BUN (Urea Nitrogen) 18 mg/dL (9.8-20.1); Calc. Creatinine Clearance 43 mL/min (70-130); Calcium 8.8 mg/dL (7.8-10.44); Carbon Dioxide 30 mmol/L (23-31); Chloride 99 mmol/L (98-107); Estimated GFR-MDRD 40; Glucose 117 mg/dL (83-110); Potassium 3.8 mmol/L (3.5-5.1); Sodium 140 mmol/L (136-145)
[2017-06-06] MEDS ORDERED: Mag-Al 1200 mg/1200 mg/30 ML UDCUP PO PRN (16:26)
[2017-06-06] MEDS ORDERED: Mag-Al Plus 1200 MG/1200 MG/120 MG/30 ML UDCUP ONE (17:17)
[2017-06-06] MEDS ORDERED: Sterile Water 0 ML ONE (17:48)
[2017-06-06] MEDS: Mag-Al Plus 1200 MG/1200 MG/120 MG/30 ML UDCUP PO PRN (17:51)
[2017-06-07] MEDS: HYDROcodone/Acetaminophen 10/325 mg Tablet PO PRN ×2 (08:32→16:32)
[2017-06-07] MEDS: Docusate 100 MG CAP PO SCH ×2 (08:33→20:20)
[2017-06-07] MEDS: guaiFENesin ER 600 MG TAB PO SCH ×2 (08:33→20:20)
[2017-06-07] MEDS: Carvedilol 3.125 MG TAB PO SCH (08:33)
[2017-06-07] MEDS: Nystatin Cream 15 GM TUBE TOP SCH ×2 (08:34→21:33)
[2017-06-07] MEDS: Mag-Al Plus 1200 MG/1200 MG/120 MG/30 ML UDCUP PO PRN ×2 (16:34→23:01)
[2017-06-07 20:12] LABS: Bilirubin Negative (Negative); Blood, Urine Large (Negative); Glucose, Urine (Dipstick) Negative (Negative); Leukocyte Large (Negative); Nitrite Negative (Negative); Protein, Urine (Dipstick) > or equal to 300 mg/dL (Neg-Trace); Urobilinogen 0.2 mg/dL (0.2-1.0)
[2017-06-07 20:18] LABS: Clarity Cloudy (Clear); pH, Urine Greater/Equal 9.0 (5.0-9.0)
[2017-06-07 20:23] LABS: Bacteria/HPF 3+ HPF (None Seen); Crystals/HPF 2+ AMORPH PHOS HPF (Negative); Squamous Epithelial 0-3 HPF (0-3); Yeast-All Forms 1+ HPF (None Seen)
[2017-06-07] MEDS: Sulfameth/Trimethoprim DS 800-160mg TAB PO SCH (22:28)
[2017-06-07] MEDS ORDERED: Sulfameth/Trimethoprim DS 800-160mg TAB PO SCH (22:30)
[2017-06-08] MEDS: HYDROcodone/Acetaminophen 10/325 mg Tablet PO PRN ×3 (08:43→19:41)
[2017-06-08] MEDS: Sulfameth/Trimethoprim DS 800-160mg TAB PO SCH ×2 (08:44→19:40)
[2017-06-08] MEDS: Carvedilol 3.125 MG TAB PO SCH (08:44)
[2017-06-08] MEDS: Docusate 100 MG CAP PO SCH ×2 (08:44→19:44)
[2017-06-08] MEDS: guaiFENesin ER 600 MG TAB PO SCH ×2 (08:44→19:40)
[2017-06-08] MEDS: Nystatin Cream 15 GM TUBE TOP SCH ×2 (08:44→19:43)
[2017-06-08] MEDS: Zolpidem Tartrate 5 MG TAB PO PRN (21:24)
[2017-06-09] MEDS: Carvedilol 3.125 MG TAB PO SCH (08:15)
[2017-06-09] MEDS: guaiFENesin ER 600 MG TAB PO SCH ×2 (08:15→20:34)
[2017-06-09] MEDS: Sulfameth/Trimethoprim DS 800-160mg TAB PO SCH ×2 (08:16→20:34)
[2017-06-09] MEDS: Docusate 100 MG CAP PO SCH ×2 (08:18→20:34)
[2017-06-09] MEDS: Nystatin Cream 15 GM TUBE TOP SCH ×2 (08:18→20:34)
[2017-06-09] MEDS: HYDROcodone/Acetaminophen 10/325 mg Tablet PO PRN ×2 (14:04→20:36)
[2017-06-10] MEDS: HYDROcodone/Acetaminophen 10/325 mg Tablet PO PRN ×4 (05:43→23:27)
[2017-06-10] MEDS: Carvedilol 3.125 MG TAB PO SCH (10:06)
[2017-06-10] MEDS: Sulfameth/Trimethoprim DS 800-160mg TAB PO SCH (10:06)
[2017-06-10] MEDS: guaiFENesin ER 600 MG TAB PO SCH ×2 (10:06→20:37)
[2017-06-10] MEDS: Docusate 100 MG CAP PO SCH ×2 (10:07→20:37)
[2017-06-10] MEDS: Ondansetron ODT 4 MG TAB PO PRN ×2 (12:11→18:18)
[2017-06-10] MEDS: Nystatin Cream 15 GM TUBE TOP SCH ×2 (16:22→20:37)
[2017-06-10] MEDS: Nitrofurantoin Monohyd/M-Cryst 100 MG CAP PO SCH (20:37)
[2017-06-11] MEDS: Ondansetron ODT 4 MG TAB PO PRN ×2 (06:30→12:25)
[2017-06-11] MEDS: ALPRAZolam 0.5 MG TAB PO PRN ×2 (06:57→20:50)
[2017-06-11] MEDS: Docusate 100 MG CAP PO SCH ×2 (07:57→20:49)
[2017-06-11] MEDS: Carvedilol 3.125 MG TAB PO SCH (07:58)
[2017-06-11] MEDS: Nitrofurantoin Monohyd/M-Cryst 100 MG CAP PO SCH ×2 (07:58→20:49)
[2017-06-11] MEDS: guaiFENesin ER 600 MG TAB PO SCH ×2 (07:58→20:49)
[2017-06-11] MEDS: Nystatin Cream 15 GM TUBE TOP SCH ×2 (07:59→20:50)
[2017-06-11] MEDS: Polyethylene Glycol 3350 17 GM Packet PO PRN (08:35)
[2017-06-11] MEDS: HYDROcodone/Acetaminophen 10/325 mg Tablet PO PRN ×2 (14:11→18:22)
[2017-06-12] MEDS: HYDROcodone/Acetaminophen 10/325 mg Tablet PO PRN ×4 (03:11→23:46)
[2017-06-12] MEDS: Carvedilol 3.125 MG TAB PO SCH (08:37)
[2017-06-12] MEDS: Docusate 100 MG CAP PO SCH ×2 (08:37→19:43)
[2017-06-12] MEDS: guaiFENesin ER 600 MG TAB PO SCH ×2 (08:37→19:43)
[2017-06-12] MEDS: Nystatin Cream 15 GM TUBE TOP SCH ×2 (08:38→19:43)
[2017-06-12] MEDS: Nitrofurantoin Monohyd/M-Cryst 100 MG CAP PO SCH ×2 (08:38→19:42)
[2017-06-12] MEDS ORDERED: ALPRAZolam 0.25 MG TAB PO PRN (12:29)
[2017-06-12] MEDS: Famotidine 20 MG TAB PO SCH (19:43)
[2017-06-12] MEDS: Bisacodyl 5 MG TAB PO PRN (19:50)
[2017-06-12] MEDS: Ondansetron ODT 4 MG TAB PO PRN (23:41)
[2017-06-13] MEDS: Bisacodyl 10 MG SUPP PR PRN (00:38)
[2017-06-13 07:43] LABS: #Basophils 0.1 thou/uL (0.0-0.2); #Eosinphils 0.1 thou/uL (0.0-0.7); #Lymphocytes 1.4 thou/uL (1.20-3.40); #Monocytes 0.7 thou/uL (0.11-0.59); #Neutrophils 3.9 thou/uL (1.40-6.50); %Basophils 2.3 % (0.0-1.0); %Eosinophils 1.6 % (0.0-10.0); %Lymphocytes 22.8 % (21.0-51.0); %Monocytes 11.5 % (0.0-10.0); %Neutrophils 61.8 % (42.0-75.0); Hemoglobin 12.1 g/dL (12.0-16.0); Mean Corpuscular HGB CONC 30.9 g/dL (32.0-36.0); Mean Corpuscular Hemoglobin 27.6 pg (27.0-31.0); Mean Corpuscular Volume 89.5 fl (81.0-99.0); Mean Platelet Volume 8.2 fL (7.4-10.4); Platelet Count 242 thou/uL (130-400); Red Blood Cell (RBC) Count 4.37 mill/uL (4.20-5.40); White Blood Cell (WBC) Count 6.2 thou/uL (4.8-10.8)
[2017-06-13 07:57] LABS: ALT (SGPT) 9 U/L (8-55); AST (SGOT) 20 U/L (5-34); Albumin 2.3 g/dL (3.4-4.8); Alkaline Phosphatase 101 U/L (40-150); Anion Gap 14 mmol/L (10-20); BUN (Urea Nitrogen) 18 mg/dL (9.8-20.1); Bilirubin, Total 0.4 mg/dL (0.2-1.2); Calc. Creatinine Clearance 37 mL/min (70-130); Calcium 8.5 mg/dL (7.8-10.44); Carbon Dioxide 32 mmol/L (23-31); Chloride 97 mmol/L (98-107); Estimated GFR-MDRD 34; Globulin 4.6 g/dL (2.4-3.5); Glucose 89 mg/dL (83-110); Potassium 4.5 mmol/L (3.5-5.1); Protein, Total 6.9 g/dL (6.0-8.3); Sodium 138 mmol/L (136-145)
[2017-06-13] MEDS: guaiFENesin ER 600 MG TAB PO SCH ×2 (08:39→20:20)
[2017-06-13] MEDS: Docusate 100 MG CAP PO SCH ×2 (08:39→20:19)
[2017-06-13] MEDS: Carvedilol 3.125 MG TAB PO SCH (08:39)
[2017-06-13] MEDS: Nitrofurantoin Monohyd/M-Cryst 100 MG CAP PO SCH ×2 (08:39→20:19)
[2017-06-13] MEDS: Nystatin Cream 15 GM TUBE TOP SCH ×2 (08:44→20:20)
[2017-06-13] MEDS: HYDROcodone/Acetaminophen 10/325 mg Tablet PO PRN (09:07)
--- NOTE | 2017-06-13 09:43 | RAD ---
RADIOGRAPH CHEST 1 VIEW: Date: 06-13-17 Time: 9:02 a.m. HISTORY: 86-year-old female with dyspnea. COMPARISON: 05-12-17 FINDINGS: Inspiration is shallower on the current study with low lung volumes. Again demonstrated are the diff use bilateral interstitial infiltrates. Again demonstrated are the cardiomegaly, and the dorsal colu mn stimulator leads in the thoracic spine. No consolidation. Interstitial densities appear worse now , but that could be due to the shallow inspiration. IMPRESSION: 1. Limited study because of low lung volumes. 2. Cardiomegaly. 3. Bilateral interstitial densities. MARYSOL POS: OMA
[2017-06-13] MEDS: Mag-Al Plus 1200 MG/1200 MG/120 MG/30 ML UDCUP PO PRN (11:48)
[2017-06-13] MEDS ORDERED: predniSONE 20 MG TAB PO SCH (12:00)
[2017-06-13] MEDS: Ondansetron ODT 4 MG TAB PO PRN (12:01)
[2017-06-13] MEDS: Doxycycline 100 MG CAP PO SCH ×3 (12:02→20:29)
[2017-06-13] MEDS: Famotidine 20 MG TAB PO SCH (20:20)
[2017-06-14] MEDS: HYDROcodone/Acetaminophen 10/325 mg Tablet PO PRN ×4 (01:27→21:01)
[2017-06-14] MEDS: Mag-Al Plus 1200 MG/1200 MG/120 MG/30 ML UDCUP PO PRN (08:04)
[2017-06-14] MEDS: Docusate 100 MG CAP PO SCH ×2 (09:37→20:25)
[2017-06-14] MEDS: predniSONE 20 MG TAB PO SCH (09:37)
[2017-06-14] MEDS: Carvedilol 3.125 MG TAB PO SCH (09:37)
[2017-06-14] MEDS: Doxycycline 100 MG CAP PO SCH ×2 (09:38→20:26)
[2017-06-14] MEDS: Nitrofurantoin Monohyd/M-Cryst 100 MG CAP PO SCH ×2 (09:38→20:27)
[2017-06-14] MEDS: Nystatin Cream 15 GM TUBE TOP SCH ×2 (09:38→20:27)
[2017-06-14] MEDS: guaiFENesin ER 600 MG TAB PO SCH ×2 (09:38→20:27)
[2017-06-14] MEDS: Ondansetron ODT 4 MG TAB PO PRN (12:14)
[2017-06-14] MEDS: Acetaminophen 325 MG TAB PO PRN (15:29)
[2017-06-14] MEDS: Famotidine 20 MG TAB PO SCH (20:26)
[2017-06-15] MEDS: HYDROcodone/Acetaminophen 10/325 mg Tablet PO PRN ×3 (01:48→21:47)
[2017-06-15] MEDS: predniSONE 20 MG TAB PO SCH (07:59)
[2017-06-15] MEDS: Ondansetron ODT 4 MG TAB PO PRN ×2 (08:59→16:29)
[2017-06-15] MEDS: Nitrofurantoin Monohyd/M-Cryst 100 MG CAP PO SCH (10:24)
[2017-06-15] MEDS: Doxycycline 100 MG CAP PO SCH ×2 (10:25→20:31)
[2017-06-15] MEDS: Docusate 100 MG CAP PO SCH ×2 (10:25→20:31)
[2017-06-15] MEDS: guaiFENesin ER 600 MG TAB PO SCH ×2 (10:26→20:32)
[2017-06-15] MEDS: Carvedilol 3.125 MG TAB PO SCH (10:26)
[2017-06-15] MEDS ORDERED: predniSONE 20 MG TAB PO SCH (13:05)
[2017-06-15] MEDS: Nystatin Cream 15 GM TUBE TOP SCH ×2 (16:18→20:36)
[2017-06-15] MEDS: Famotidine 20 MG TAB PO SCH (20:31)
[2017-06-16] MEDS: Mag-Al Plus 1200 MG/1200 MG/120 MG/30 ML UDCUP PO PRN (00:50)
[2017-06-16] MEDS: Ondansetron ODT 4 MG TAB PO PRN (07:36)
[2017-06-16] MEDS: Doxycycline 100 MG CAP PO SCH (08:19)
[2017-06-16] MEDS: Carvedilol 3.125 MG TAB PO SCH (08:19)
[2017-06-16] MEDS: Docusate 100 MG CAP PO SCH (08:19)
[2017-06-16] MEDS: guaiFENesin ER 600 MG TAB PO SCH (08:19)
[2017-06-16] MEDS: Nystatin Cream 15 GM TUBE TOP SCH (08:21)
[2017-06-16 08:51] VITALS: BP 159/74; TEMP 98.2
[2017-06-16] MEDS: HYDROcodone/Acetaminophen 10/325 mg Tablet PO PRN (09:34)
--- NOTE | 2017-06-16 23:19 | DIS ---
DATE OF ADMISSION: 05/19/2017 DATE OF DISCHARGE: 06/16/2017 PRIMARY CARE PHYSICIAN: Dr. Maravilla. HOSPITAL COURSE: This is a pleasant 86-year-old female that was admitted on 05/19/2017 status post open reduction internal fixation of her severely displaced right ankle fracture. The patient has significant advanced comorbidities of chronic diastolic heart failure, chronic atrial fibrillation, hypertension, depression, chronic intractable pain, COPD, and severe deconditioning. The patient was admitted for anticipated physical therapy and occupational therapy, status post her fracture. The patient has had some complications during her hospitalization. She has had minimal participation with physical therapy due to pain and immobility. She has been able to get up in the chair, but otherwise has not tolerated very much physical therapy. She has had a urinary tract infection that was treated with Macrobid as well as exacerbation of her chronic bronchitis and COPD that was treated as well. Numerous family meetings were conducted while the patient was hospitalized given her overall poor prognosis with her comorbidities and recent injury. We met with the family yesterday and patient expressed the strong desire to no longer participate with physical therapy and with preference to see if she would qualify for hospice with comfort care measures. Palliative care had initially addressed this option when she was hospitalized in [place]. The patient was seen by [facility], who has approved patient for comfort care measures and family and patient are all in agreement that this is the best course of action. The patient will be discharged home today with [facility] and her daughter to continue as primary caregiver. MEDICATIONS UPON DISCHARGE: 1. Carvedilol 3.125 mg once daily. 2. Diltiazem 180 mg once nightly. 3. Famotidine 20 mg once nightly. 4. Polyethylene glycol 17 grams twice daily as needed for constipation. 5. Sertraline 100 mg every morning. 6. Nystatin topical cream b.i.d. as needed. 7. Alprazolam 0.5 mg nightly as needed. 8. Acetaminophen 325 mg every 4 hours as needed. 9. Aspirin 81 mg once daily. 10. Dulcolax 5 mg daily as needed for constipation. 11. Colace 100 mg twice daily. 12. Hydrocodone/acetaminophen 10/325 mg every 4 hours as needed. 13. DuoNeb 3 mL every 4 hours as needed for shortness of breath. 14. Ondansetron 4 mg every 6 hours as needed for nausea. 15. Pantoprazole 40 mg once daily. 16. Zolpidem 5 mg once nightly as needed for insomnia. DIET UPON DISCHARGE: She will continue mechanical soft diet. ACTIVITIES: The patient continues to be nonweightbearing on her right lower extremity. FOLLOWUP: The patient will follow up with her primary care physician, Dr. Maravilla or myself in clinic within 2 weeks as well as with Dr. Salmeron as scheduled on 06/26/2017. MTDD
== END 2017-06-16 10:40 | disposition hospice, home (50) | DRG 560 ==
LOC: UNDOADMIN 19:22 → MADMS 19:22 → UNDOADMIN 05-26 17:43 → MADMS 05-26 17:43
PROVIDERS: ADMIT Family Medicine; ATTEND Family Medicine
DX: S82.891D Other fracture of right lower leg, subsequent encounter for closed fracture with routine healing (principal); I50.32 Chronic diastolic (congestive) heart failure; J44.9 Chronic obstructive pulmonary disease, unspecified; N18.4 Chronic kidney disease, stage 4 (severe); N17.9 Acute kidney failure, unspecified; I48.2 Chronic atrial fibrillation; N39.0 Urinary tract infection, site not specified; I13.0 Hypertensive heart and chronic kidney disease with heart failure and stage 1 through stage 4 chronic kidney disease, or unspecified chronic kidney disease; F41.9 Anxiety disorder, unspecified; F32.9 Major depressive disorder, single episode, unspecified; G25.81 Restless legs syndrome; G89.29 Other chronic pain; F51.04 Psychophysiologic insomnia; Z90.5 Acquired absence of kidney; Z96.643 Presence of artificial hip joint, bilateral; Z88.5 Allergy status to narcotic agent; Z88.1 Allergy status to other antibiotic agents; Z91.040 Latex allergy status; Z66 Do not resuscitate; Z51.5 Encounter for palliative care; K59.00 Constipation, unspecified
CPT/HCPCS: 36415; 71010; 80048; 80053; 81001; 81003; 81015; 83880; 85025; 87077; 87086; 87186; 94640; A4216; A4353; G8978-GP-CM; G8979-GP-CJ; G8979-GP-CK; G8996-GN-CI; G8997-GN-CI; G8998-GN-CI; J7506; J7620; Q0162

== ENCOUNTER 2017-06-28 14:47 | Emergency (ER) | payer MEDICARE, MEDICAID ==
[~2017-06-28 14:47] MED LIST: Sodium Chloride 0.9% 1,000 ML BAG ONE
[2017-06-28] MEDS ORDERED: Ondansetron HCl/PF 4 MG/2 ML Vial ONE ×2 (15:05→16:33)
[2017-06-28] MEDS ORDERED: Morphine 10 MG/ML VIAL ONE ×2 (15:05→16:33)
[2017-06-28] MEDS ORDERED: Pantoprazole 40 MG VIAL ONE ×3 (15:16→17:10)
[2017-06-28 15:43] LABS: #Basophils 0.2 thou/uL (0.0-0.2); #Lymphocytes 1.8 thou/uL (1.20-3.40); #Monocytes 0.7 thou/uL (0.11-0.59); #Neutrophils 13.2 thou/uL (1.40-6.50); %Eosinophils 0.1 % (0.0-10.0); %Lymphocytes 11.1 % (21.0-51.0); %Monocytes 4.2 % (0.0-10.0); %Neutrophils 83.6 % (42.0-75.0); Hemoglobin 11.8 g/dL (12.0-16.0); Mean Corpuscular HGB CONC 30.7 g/dL (32.0-36.0); Mean Corpuscular Hemoglobin 27.8 pg (27.0-31.0); Mean Corpuscular Volume 90.7 fl (81.0-99.0); Platelet Count 253 thou/uL (130-400); RBC Distribution Width 17.5 % (11.5-14.5); Red Blood Cell (RBC) Count 4.24 mill/uL (4.20-5.40); White Blood Cell (WBC) Count 15.8 thou/uL (4.8-10.8)
--- NOTE | 2017-06-28 15:59 | RAD ---
CHEST ONE VIEW: HISTORY: Chest pain. COMPARISON: 06/13/2017 FINDINGS: The cardiac silhouette is magnified by projection and at the upper limits of normal in size. The pu lmonary vasculature remains engorged with patchy bilateral perihilar and bibasilar infiltrates. The mediastinum is midline with aortic calcification and dorsal column stimulator leads. There is no e vidence of pneumothorax. Prominent degenerative changes involve each shoulder. IMPRESSION: 1. Pulmonary edema, similar in appearance to the previous exam. 2. Atherosclerosis. POS: OMA
[2017-06-28 16:02] LABS: ALT (SGPT) 13 U/L (8-55); AST (SGOT) 18 U/L (5-34); Albumin 2.3 g/dL (3.4-4.8); Alkaline Phosphatase 102 U/L (40-150); Anion Gap 18 mmol/L (10-20); BUN (Urea Nitrogen) 31 mg/dL (9.8-20.1); Calc. Creatinine Clearance 0 mL/min (70-130); Calcium 8.5 mg/dL (7.8-10.44); Carbon Dioxide 28 mmol/L (23-31); Chloride 100 mmol/L (98-107); Estimated GFR-MDRD 53; Globulin 4.5 g/dL (2.4-3.5); Glucose 113 mg/dL (83-110); Lipase 22 U/L (8-78); Potassium 3.9 mmol/L (3.5-5.1); Protein, Total 6.8 g/dL (6.0-8.3); Sodium 142 mmol/L (136-145)
[2017-06-28 16:02] LABS: Bilirubin Negative (Negative); Blood, Urine Negative (Negative); Glucose, Urine (Dipstick) Negative (Negative); Leukocyte Moderate (Negative); Nitrite Negative (Negative); Protein, Urine (Dipstick) 30 mg/dL (Neg-Trace); Specific Gravity, Urine 1.015 (1.005-1.030); pH, Urine 8.5 (5.0-9.0)
[2017-06-28 16:06] LABS: Bilirubin, Total 0.6 mg/dL (0.2-1.2)
[2017-06-28 16:07] LABS: Bacteria/HPF 4+ HPF (None Seen); Clarity Slightly Cloudy (Clear); RBC/HPF 0-3 HPF (0-3); Squamous Epithelial None Seen HPF (0-3); WBC/HPF 21-50 HPF (0-3)
[2017-06-28] MEDS ORDERED: Levofloxacin 500 mg/D5W 100 ml Premix Bag ONE (16:34)
== END 2017-06-28 19:17 | disposition home or self-care (01) ==
LOC: MADERS 14:47
DX: R10.13 Epigastric pain (principal); T36.3X5A Adverse effect of macrolides, initial encounter; N39.0 Urinary tract infection, site not specified; I11.0 Hypertensive heart disease with heart failure; I50.9 Heart failure, unspecified; J44.9 Chronic obstructive pulmonary disease, unspecified; K21.9 Gastro-esophageal reflux disease without esophagitis; I48.91 Unspecified atrial fibrillation; F32.9 Major depressive disorder, single episode, unspecified; Z79.899 Other long term (current) drug therapy
CPT/HCPCS: 36415; 51702; 71010; 80053; 81003; 81015; 82553; 83690; 83880; 84484; 85025; 87077; 87086; 93005; 96361; 96365; 96367; 96375; C9113; J1956; J2270; J2405; J3370; J7050

== ENCOUNTER 2017-07-11 18:52 | Emergency (ER) | payer MEDICARE, MEDICAID ==
[~2017-07-11 18:52] MED LIST changes: +Sodium Chloride 0.9% 100 ML BAG ONE
[2017-07-11] MEDS ORDERED: Naloxone HCl 2 mg/2 ml Syringe ONE (19:11)
[2017-07-11] MEDS ORDERED: Lorazepam 2 MG/ML VIAL ONE (19:29)
[2017-07-11 19:37] LABS: #Eosinphils 0.1 thou/uL (0.0-0.7); #Monocytes 0.7 thou/uL (0.11-0.59); %Basophils 0.6 % (0.0-1.0); %Lymphocytes 22.4 % (21.0-51.0); %Monocytes 7.7 % (0.0-10.0); %Neutrophils 68.3 % (42.0-75.0); Anisocytosis SLIGHT = 6-15 cells (100X) (0-5/hpf); Hemoglobin 10.6 g/dL (12.0-16.0); Hypochromia SLIGHT = 6-15 cells (100X) (0-5/hpf); MDiff Complete? YES; Mean Corpuscular HGB CONC 32.5 g/dL (32.0-36.0); Mean Corpuscular Hemoglobin 29.9 pg (27.0-31.0); Mean Corpuscular Volume 92.1 fl (81.0-99.0); Mean Platelet Volume 7.1 fL (7.4-10.4); Platelet Count 330 thou/uL (130-400); RBC Distribution Width 18.7 % (11.5-14.5); Red Blood Cell (RBC) Count 3.56 mill/uL (4.20-5.40); White Blood Cell (WBC) Count 8.8 thou/uL (4.8-10.8)
[2017-07-11 19:40] LABS: Anion Gap 13 mmol/L (10-20); BUN (Urea Nitrogen) 9 mg/dL (9.8-20.1); Calc. Creatinine Clearance 0 mL/min (70-130); Calcium 8.2 mg/dL (7.8-10.44); Carbon Dioxide 31 mmol/L (23-31); Chloride 100 mmol/L (98-107); Estimated GFR-MDRD 79; Glucose 92 mg/dL (83-110); Potassium 3.3 mmol/L (3.5-5.1); Sodium 141 mmol/L (136-145)
[2017-07-11] MEDS ORDERED: Haloperidol Lactate 5 MG/ML VIAL ONE (19:43)
[2017-07-11 19:44] LABS: CKMB 0.9 ng/mL (0-6.6); Troponin I 0.019 ng/mL (< 0.028)
--- NOTE | 2017-07-11 21:11 | CT ---
CT HEAD NONCONTRAST 07/11/17 HISTORY: Altered mental status. COMPARISON: 05/12/17 FINDINGS: There is no evidence of acute intracranial hemorrhage or infarct. 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 There is no mass effect or shift of midline structures. Sma ll calcified meningioma at the right parietal level is stable. IMPRESSION: Chronic type findings are stable. No acute intracranial abnormalities are demonstrated on noncontras t CT head. POS: OMA
[2017-07-11 21:18] LABS: Bilirubin Small (Negative); Blood, Urine Small (Negative); Clarity Clear (Clear); Glucose, Urine (Dipstick) Negative (Negative); Leukocyte Small (Negative); Nitrite Negative (Negative); Protein, Urine (Dipstick) 30 mg/dL (Neg-Trace); Specific Gravity, Urine 1.025 (1.005-1.030); Urobilinogen 0.2 mg/dL (0.2-1.0); pH, Urine 5.5 (5.0-9.0)
[2017-07-11 21:25] LABS: Bacteria/HPF None Seen HPF (None Seen); Squamous Epithelial 0-3 HPF (0-3)
[2017-07-11 21:26] LABS: Yeast-All Forms 3+ HPF (None Seen)
[2017-07-11] MEDS ORDERED: Diltiazem 125 MG/25 ML ONE (21:36)
== END 2017-07-11 22:05 | disposition short-term general hospital (02) ==
LOC: MADERS 18:52
DX: I48.91 Unspecified atrial fibrillation (principal); T40.3X5A Adverse effect of methadone, initial encounter; F32.9 Major depressive disorder, single episode, unspecified; J44.9 Chronic obstructive pulmonary disease, unspecified; I11.0 Hypertensive heart disease with heart failure; I50.9 Heart failure, unspecified; K21.9 Gastro-esophageal reflux disease without esophagitis; M19.90 Unspecified osteoarthritis, unspecified site
CPT/HCPCS: 70450; 80048; 81003; 81015; 82553; 83605; 84484; 85025; 93005; 96361; 96365; 96375; 96376; A4353; J1630; J2060; J2310; J7050